=== PATIENT | male | born 1965 | race Caucasian/White ===

== ENCOUNTER → 2019-05-30 10:15 | Outpatient (BNVA) | payer MEDICARE, MEDICAID, SELFPAY | PROVIDERS: Family Provider Nurse Practitioner Family; PCP Nurse Practitioner Family; Visit Provider Nurse Practitioner Psychiatric/Mental Health | DX: F33.3 Major depressive disorder, recurrent, severe with psychotic symptoms (principal); F17.210 Nicotine dependence, cigarettes, uncomplicated; F10.20 Alcohol dependence, uncomplicated | CPT/HCPCS: 99214 ==

== ENCOUNTER 2019-06-06 14:24 | Outpatient (CLI) | payer MEDICARE, MEDICAID, SELFPAY ==
--- NOTE | 2019-06-06 14:54 | XR_ITS ---
WS: [id number] CERVICAL SPINE FLEXION EXTENSION TECHNIQUE: 3 views of the cervical spine: lateral neutral, flexion and extension views. CLINICAL INFORMATION: cervical pain COMPARISON: None. FINDINGS: Straightening of the normal cervical lordosis. Mild spondylitic changes. Mild disc space narrowing C6 -7. Normal prevertebral soft tissues. Normal C1-2 articulation. No instability on flexion-extension. Posterior elements are normal. No other significant findings. XR/XR cervical spine fl/ex [id number] IMPRESSION: No instability on flexion-extension
--- NOTE | 2019-06-06 15:00 | MR_ITS ---
WS: [id number] MRI CERVICAL SPINE NONCONTRAST TECHNIQUE: Sagittal T1, T2 and STIR imaging. Axial T2, gradient, and fiesta imaging. CLINICAL INFORMATION: cervical pain COMPARISON: MRI cervical [address] cervical March 17, 2019 FINDINGS: Some images degraded by motion. Normal cervical alignment. No high-grade central canal stenosis. Cord signal is normal. Mild disc bu lging C3-C6. C2-C3: Normal. C3-C4: Mild disc bulging with mild central canal stenosis. Slight effacement of ventral thecal sac. M oderate bilateral bony foraminal narrowing. C4-C5: Mild disc osteophyte complex with mild central canal stenosis. Slight effacement of ventral th ecal sac. Moderate to severe bilateral bony foraminal narrowing worse in the left with mild facet art hropathy. C5-C6: Mild disc bulging with osteophytic ridging. Moderate bilateral bony foraminal narrowing. Moder ate facet arthropathy. Spinal canal is patent. C6-C7: Small left pericentral protrusion with mild central canal stenosis. Moderate to severe bilater al bony foraminal C7-T1: Osteophytic ridging. Moderate bilateral bony foraminal narrowing. Spinal canal is patent Cervical spine appears stable since MRI December 12, 2018. No significant interval changes. MR/MR cervical spin wo con* [id number] IMPRESSION: 1. Mild central canal stenosis with shallow disc osteophyte complexes at C3-C4 C4-C5 and C6-C7. 2. Shallow Left pericentral disc osteophyte protrusion C6-7 with mild central canal stenosis. 3. Multilevel moderate to severe bony foraminal narrowing worse at left C3-C4, bilateral C4-C5 worse in the left, bilateral C5-C6 worse in the left, and bila teral C6-7. 4. Cord signal is normal.
== END 2019-06-06 14:25 | disposition home or self-care (01) ==
LOC: RADWPI 14:29
PROVIDERS: Family Provider Nurse Practitioner Family; PCP Nurse Practitioner Family; Visit Provider Specialist
DX: M48.02 Spinal stenosis, cervical region (principal); M25.78 Osteophyte, vertebrae; M50.223 Other cervical disc displacement at C6-C7 level
CPT/HCPCS: 72040; 72141

== ENCOUNTER → 2019-06-29 08:45 | Outpatient (BNVA) | payer MEDICARE, MEDICAID, SELFPAY | PROVIDERS: Family Provider Nurse Practitioner Family; PCP Nurse Practitioner Family; Visit Provider Nurse Practitioner Psychiatric/Mental Health | DX: F33.3 Major depressive disorder, recurrent, severe with psychotic symptoms (principal); F17.210 Nicotine dependence, cigarettes, uncomplicated; F10.29 Alcohol dependence with unspecified alcohol-induced disorder | CPT/HCPCS: 99214 ==

== ENCOUNTER → 2019-07-11 08:20 | Outpatient (BNVA) | payer MEDICARE, MEDICAID, SELFPAY | PROVIDERS: Family Provider Nurse Practitioner Family; PCP Nurse Practitioner Family; Referring Provider Nurse Practitioner Family; Visit Provider Anesthesiology Pain Medicine | DX: G89.29 Other chronic pain (principal); M54.12 Radiculopathy, cervical region; M47.816 Spondylosis without myelopathy or radiculopathy, lumbar region; M54.16 Radiculopathy, lumbar region; F33.3 Major depressive disorder, recurrent, severe with psychotic symptoms; F17.210 Nicotine dependence, cigarettes, uncomplicated; Z79.891 Long term (current) use of opiate analgesic | CPT/HCPCS: 99203 ==

== ENCOUNTER → 2019-08-07 07:24 | Outpatient (BNVA) | payer MEDICARE, MEDICAID, SELFPAY | PROVIDERS: Family Provider Nurse Practitioner Family; PCP Nurse Practitioner Family; Visit Provider Nurse Practitioner Psychiatric/Mental Health | DX: F33.3 Major depressive disorder, recurrent, severe with psychotic symptoms (principal); F17.210 Nicotine dependence, cigarettes, uncomplicated; F10.29 Alcohol dependence with unspecified alcohol-induced disorder | CPT/HCPCS: 99213 ==

== ENCOUNTER → 2019-08-10 12:00 | Outpatient (BNVA) | payer MEDICARE, MEDICAID, SELFPAY | PROVIDERS: Family Provider Nurse Practitioner Family; PCP Nurse Practitioner Family; Visit Provider Nurse Practitioner Family | DX: E53.8 Deficiency of other specified B group vitamins (principal); Z12.5 Encounter for screening for malignant neoplasm of prostate; D64.9 Anemia, unspecified; E78.2 Mixed hyperlipidemia; I10 Essential (primary) hypertension; E55.9 Vitamin D deficiency, unspecified; R73.09 Other abnormal glucose; Z01.818 Encounter for other preprocedural examination | CPT/HCPCS: 80053; 80061; 81001; 82306; 82607; 83036; 84443; 85025; G0103 ==

== ENCOUNTER 2019-08-14 10:42 | Observation (INO) | payer MEDICARE, MEDICAID, SELFPAY ==
[2019-08-11 11:20] VITALS: BMI 29.5
[2019-08-14] VITALS (17 sets, daily range): BP systolic 110–156; BP diastolic 68–98; PULSE 74–99; RESP 16–87; TEMP 36.3–36.7; O2SAT 92–99
--- NOTE | 2019-08-14 06:27 | ANES.PREANE2 ---
Pre-Anesthetic Assessment Pre-Anesthetic Assessment: Height/Weight: Height 1.73 m Weight 87.997 kg Temp Pulse Resp BP Pulse Ox 97.8 F 78 18 143/98 97 08/14/19 06:12 08/14/19 06:12 08/14/19 06:12 08/14/19 06:12 08/14/19 06:12 Preop Diagnosis: Intervertebral disc disorder with myelopathy, mid cervical region Proposed Procedure: Operation Date: 08/14/19 07:00 Proposed Procedures p Anterior Cervical Discecotmy&Fusion 2Lev C3-4 C4-5 83053 M50.020(Not Applicable) - Flex Hernandez MD Familial anesthetic complications: None Was Beta Nenita taken within 24 hours: Yes Last intake: NPO > 8 hrs Social: Social History: Tobacco and No alcohol Packs per day: 0.5 ppd Exam: Pre-Anes Outpt Exam: alert, oriented x 3, clear to auscultation bilaterally and regular rate & rhythm Airway: Cervical ROM: WNL and Other (Limited extension due to p ain) MP: 3 Additional comments: edentulous Pulmonary: Pulmonary: Asthma CV/HEM: CV/HEM: CAD (multiple stents; last one > 1 year), HTN and RI : : None reported Hepatic: Hepatic: None reported GI: GI: None reported Metabolic: Metabolic: DM ( formerly ) Musc/skel: Comments: neck pain Neuropsych: Neuropsych: Neuropathy Comments: R arm, l leg Anesthetic Plan: ASA status: 3 Anesthesia: General Risk of > 500 ml blood loss (7ml/kg in children): No PFSH Anesthesia PFSH: Medical History (Updated 08/10/19 @ 10:35 by CARMEN Valdes) Alcohol dependence Cervical disc disorder with myelopathy of mid-cervical region Chronic migraine Depression Elevated hemoglobin A1c History of RI (myocardial infarction) Hypertension, benign Insomnia 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 Major depressive disorder, recurrent, severe with psychotic symptoms Mixed hyperlipidemia Neuropathy, idiopathic Nicotine dependence, cigarettes, uncomplicated Pain management contract signed Polyneuropathy, peripheral sensorimotor axonal Spondylolisthesis of cervical region Vitamin B12 deficiency Vitamin D deficiency Surgical History History of cholecystectomy History of elbow surgery History of heart artery stent Hx of appendectomy Social History Smoking and tobacco status: current every day smoker cigarettes [ Other cigarette details: 1 pck and half ] Alcohol intake: former Lives independently: Yes Marital status: Life Partner Current occupational status: disabled History of recent travel: No Data Anesthesia Cardiac Studies: No Data to Display
[2019-08-14] MEDS: metoprolol tartrate 25 mg Tablet PO (06:32)
[2019-08-14] MEDS: sodium chloride 0.9% 1,000 ML 30 ML IV (06:37)
--- NOTE | 2019-08-14 06:56 | P.HPUD_ITS ---
Surgery/Procedure H&P Update DATE OF PROCEDURE: August 14, 2019 DATE H&P PERFORMED: 08/10/19 H&P UPDATE INFORMATION: I have reviewed H&P completed within last 30 days and H&P is in [facility] EMR on date indicated PREOP DIAGNOSIS: Intervertebral disc disorder with myelopathy, mid cervical region PRIMARY INDICATION FOR PROCEDURE: Pain PLANNED PROCEDURE: Operation Date: 08/14/19 07:00 Proposed Procedures Anterior Cervical Discectomy/Fusion/fixation, C3-4 and C4-5 18172 M50.020(Not Applicable) - Flex Hernandez MD
--- NOTE | 2019-08-14 07:08 | PM.OP2 ---
 Brief Operative Note: Date of procedure: 08/14/19 Pre-op diagnosis: Intervertebral disc disorder with myelopathy Post-op diagnosis: same (with instability of joint) Procedure Done: C3-C5 ACDFF Surgeon: Flex Hernandez Estimated blood loss (mL): 25 Complications: None Post-op Plan: PACU, then surgical joaquin Condition: stable Disposition: PACU Coding Level of Care Code Acute Extruding Press Operator for Kaylee Aguayo
--- NOTE | 2019-08-14 07:18 | XR_ITS ---
WS: [id number] INTRAOPERATIVE LATERAL CERVICAL SPINE HISTORY: OR PIC COMPARISON: 06/06/2019 Lateral radiograph obtained in the OR with a metallic marker indicating the anterior C4-5 disc level. Patient is intubated. XR/XR cervical spine 1ort [id number] IMPRESSION: Intraoperative planning marker at anterior C4-5 disc level.
--- NOTE | 2019-08-14 07:51 | XR_ITS ---
WS: [id number] INTRAOPERATIVE LATERAL CERVICAL SPINE HISTORY: SURGERY COMPARISON: 06/06/2019 Lateral radiograph obtained in the OR with a metallic marker indicating the C4-5 anterior disc space. Soft tissue spacers are now present also. Patient is intubated. XR/XR cervical spine 1ort [id number] IMPRESSION: Intraoperative planning marker at anterior C4-5 disc level.
[2019-08-14] MEDS: thrombin 5,000 unit SDV 5000 UNIT XX (08:01)
--- NOTE | 2019-08-14 08:28 | SUR.OPER ---
Family Notified Of Patient's Status Via Phone.
--- NOTE | 2019-08-14 09:56 | SUR.OPER ---
Family Notified Of Patient's Status Via Phone.
--- NOTE | 2019-08-14 10:15 | XR_ITS ---
WS: [id number] CERVICAL SPINE 2 VIEWS HISTORY: AP/LAT Post op Fusion COMPARISON: Intraoperative imaging. Interval placement of an anterior cervical plate from C3 through C5. Interbody spacers at C3-4 and C4 -5. Postoperative soft tissue changes. Patient has been extubated. XR/XR cervical spine 3V* [id number] IMPRESSION: Status post anterior cervical fusion with interbody spacers from C3 through C5. Intact with no acute postoperative complication.
[2019-08-14] MEDS: fentaNYL 50 mcg/mL INJ 2mL IVP ×2 (10:35→10:40)
--- NOTE | 2019-08-14 11:20 | SUR.PHASEI ---
1055 PT HAS MOVEMENT TO ALL EXTREMITIES. C/O PAIN/WEAKNESS IN R. SHOULDER, STATES HAS PAIN IN SHOULDER ALL THE TIME. DIDN'T WANT TO MOVE R. ARM MUCH DUE TO PAIN
[2019-08-14] MEDS: ketorolac 30 mg/mL INJ IVP (12:29)
--- NOTE | 2019-08-14 12:35 | PC.NURSE ---
Toradol 30 mg IV given for complaints of neck pain rated 9/10.
[2019-08-14] MEDS: HYDROcodone-acetaminophen 5-325 mg Tablet 1 TAB PO (15:17)
--- NOTE | 2019-08-14 16:15 | PM.OP ---
Operative Report Date of procedure: August 14, 2019 Pre-op Diagnosis: Intervertebral disc disorder with myelopathy, mid cervical region Post-op diagnosis: same (with instability of joint) Procedure Done: 1. C3-C4, C4-C5 anterior cervical discectomy with osteophytectomy. 2. C3-C4, C4-C5 anterior cervical plate and screw fixation. 3. C3-C4, C4-C5 placement of intervertebral prosthetic device. 4. C3-C4, C4-C5 anterior cervical fusion utilizing morselized autograft obtained from the osteophytectomy portions of the procedure. Implants: Synthes Vectra plate-screw fixation system ACIS ProTi Spacers Specimens removed/disposition: C3-C4, C4-C5 disc Pathology: Disc fragments Surgeon: Flex Hernandez Anesthesia: General Estimated blood loss (mL): 25 IV fluids (mL): 1,500 Urine output (mL): 400 Complications: None Condition: stable Disposition: PACU Brief History: The patient is a 54-year-old male with symptomatic, radiographically confirmed cervical disc/joint disease and associated neural impingement. He reported primarily right upper extremity symptoms. Imaging studies demonstrated dominant abnormalities at C3-C4 and C4-C5. Conservative management did not provide adequate lasting symptom relief. After review of the diagnostic and treatment options with the risks/potential benefits/rationale for each, the patient requested to proceed with surgical intervention. Procedure: After routine preoperative evaluation and informed consent were obtained, the patient was taken to the Operating Room and placed under general endotracheal anesthesia. He was positioned supine and fit in the [facility] tongs for the application of in-line cervical traction. The anterolateral neck on the left was prepared with hair clippers. A proposed transverse skin incision was marked with a sterile skin marker, utilizing intraoperative radiography and regional anatomy for localization. The area was scrubbed with Betadine, prepped with DuraPrep, and draped with sterile towels and drapes. Ioban surgical barrier was applied. The proposed incision site was infiltrated with 1% Xylocaine with Epinephrine. A skin incision was made and carried down into the subcutaneous tissues. The platysma was identified and divided in the direction of its fibers. A plane was dissected just medial to the carotid sheath and lateral to the midline esophagus and trachea. Prevertebral soft tissues were bluntly dissected free of the anterior margin of the cervical spine. Longus coli muscles were freed from their medial attachments. Deep self-retaining retractors were placed. Intraoperative radiography verified the desired surgical levels. The C3-C4 and C4-C5 interspaces were sequentially incised with a #11 blade. Discectomies were accomplished utilizing various curettes and pituitary rongeurs. Anterior marginal osteophytes were resected with the Lempert and Kerrison rongeurs. Cartilaginous end plates were stripped free with curettes. Posterior marginal osteophytes were resected with thin foot plate Kerrison rongeurs. The medial aspects of the neural foramina were enlarged in a similar manner. Posterior longitudinal ligament was divided and resected as necessary to further the decompression. Overall, encroachment and osteophyte prominence were greater at C4-C5 than C3-C4. Prominent segmental instability was present at C3-C4. Once the decompressions were felt to be adequate at both levels, the disc spaces were sized. An 8 mm ACIS ProTi Lordotic/Medium Spacer was chosen for C3-C4. An 8 mm ACIS ProTi Lordotic/Medium Spacer was chosen for C4-C5. The Spacers were packed with morselized autograft obtained from the osteophytectomy portions of the procedure. The Spacers were sequentially placed within the C3-C4 and C4-C5 interspaces while in-line cervical traction was applied via the Song-Wells tongs. Once the Spacers were felt to be in good position, a Synthes Vectra plate of the desired size was chosen. The plate was secured to the C3, C4 and C5 vertebral bodies with bilateral 4 mm x 14 mm self-drilling screws. Final screw tightening was performed, and the locking mechanisms within the plate were noted to engage the screws at each site. The construct was inspected and felt to be in good position and secure. The wound was copiously irrigated with sterile saline and antibiotic irrigation. Hemostasis was ensured with the bipolar electrocautery and Surgi-Shahid hemostatic matrix. Wound closure was performed in multiple layers with 2-0 Vicryl Plus simple interrupted closure of the platysma and deep dermis as separate layers. Final skin closure was performed with 4-0 Vicryl Plus in a running subcuticular pattern. Steri-Strips were applied, and a sterile dressing was placed. The patient was released from the Song-Wells tongs and fit in a Emeigh collar. He was transferred onto the Recovery Room cart in the supine position. He was extubated without incident. The patient tolerated the procedure well. All sponge, needle, and instrument counts were correct at the completion of the procedure.
--- NOTE | 2019-08-14 17:00 | P.DS_ITS ---
Discharge Providers Date of Admission: 08/14/19 10:42 Date of Discharge: August 14, 2019 Attending Provider at Admission: Flex Whitehead MD Attending Provider at Discharge: Flex Whitehead MD Primary Care Provider: CARMEN Alaniz Diagnoses at Discharge Discharge Diagnosis (1) Cervical disc disorder with myelopathy of mid-cervical region: Status: Acute (2) Spondylolisthesis of cervical region: Status: Acute (3) Instability of joint: Status: Acute Reason for Visit Reason for Visit: Reason For Visit: Cervical Disc Disorder with myelopathy of mid cerv Brief History: The patient is a 54-year-old male with symptomatic, radiographically confirmed cervical disc/joint disease and associated neural impingement. He reported primarily right upper extremity symptoms. Imaging studies demonstrated dominant abnormalities at C3-C4 and C4-C5. Conservative management did not provide adequate lasting symptom relief. After review of the diagnostic and treatment options with the risks/potential benefits/rationale for each, the patient requested to proceed with surgical intervention. Hospital Course Hospital Course: The patient underwent C3-C4, C4-C5 ACDFF on 08/14/2019. He tolerated the procedure well. He noted improvement in preoperative symptoms following surgery. He completed preoperative and postoperative intravenous antibiotic doses, and the physical therapy postoperative spine protocol. He was ambulatory, voiding, and tolerating regular diet prior to discharge home in the evening of the date of surgery. Physical Exam Const: COMMON NORMALS: no apparent distress GENERAL APPEARANCE: cooperative and comfortable Neck/C-Spine: COMMON NORMALS: supple GENERAL: Yes trachea midline and No anterior neck swelling CERVICAL SPINE: Yes collar present Resp: COMMON NORMALS: normal respiratory effort EFFORT & INSPECTION: Yes able to speak in complete sentences and No tachypneic Extremity: COMMON NORMALS: no clubbing, cyanosis or edema Neuro: COMMON NORMALS: moves all extremities MOTOR EXAM: strength 5/5 throughout (bilateral upper extremities) Psych: COMMON NORMALS: mental status grossly normal ATTITUDE: Yes calm and Yes engaged ACTIVITY/MOTOR BEHAVIOR: Yes appropriate eye contact MOOD & AFFECT: Yes euthymic mood Skin: WOUNDS: Yes surgical site (Left anterolateral neck surgical site without erythema or active drainage. Dressing is clean/dry/intact.) Urinary Catheter Management^: F: Cath Placed During This Visit: yes Urinary Catheter Date of Insertion: 08/14/19 Urinary Catheter Time of Insertion: 07:15 Discharge Data Data Completed and Pending: Completed Studies During Hospitalization Category Date Time Status XR cervical spine 1 view portable [ XR cervical spine Exams 08/14/19 07:51 Completed 1Vport [id number]] Rou eliseo XR cervical spine 1Vport 34548 Rout ine Exams 08/14/19 07:18 Completed XR cervical spine 3V* [id number] Routine Exams 08/14/19 10:15 Completed Pathology: Surgic al [PTH] Routine Pth 08/14/19 10:23 Completed Imaging^: Other Xray: Radiologist's impression: IMPRESSION: Status post anterior cervical fusion with interbody spacers from C3 through C5. Intact with no acute postoperative complication. Procedures Performed: C3-C4, C4-C5 anterior cervical discectomy/fusion/fixation. Intravenous antibiotics. Physical therapy. Vitals: Last Vital Signs Temp 98.1 F 08/14/19 11:39 Pulse 74 08/14/19 18:01 Resp 22 H 08/14/19 18:01 BP 130/68 08/14/19 18:01 Pulse Ox 96 08/14/19 18:01 Discharge Plan Discharge Patient Disposition: Home, Self-Care Prescriptions: [place] 7.5-325 mg tablet 1 tab PO TID PRN (Reason: pain) Qty: 20 RF: 0 Discontinued hydrocodone-acetaminophen 5-325 mg tablet 1 tab PO TID MDD 3 PRN (Reason: chronic pain) 7 Days Qty: 21 RF: 0 No Action rosuvastatin [Crestor] 20 mg tablet 20 mg PO DAILY RF: 0 baclofen 10 mg tablet 10 mg PO TID RF: 0 venlafaxine [Effexor XR] 150 mg capsule,extended release 24hr 150 mg PO QAM Qty: 30 RF: 3 metoprolol tartrate 25 mg tablet 25 mg PO BID 90 Days Qty: 180 RF: 1 hydrochlorothiazide 25 mg tablet 25 mg PO DAILY Qty: 30 RF: 2 omeprazole 40 mg capsule,delayed release(DR/EC) 40 mg PO DAILY Qty: 30 RF: 5 triamcinolone acetonide 0.5 % cream 1 applic TOPICAL DAILY 30 Days Qty: 15 RF: 2 lisinopril 10 mg tablet 20 mg PO DAILY RF: 0 Discharge Orders: Discharge Order (Routine); Ordered 08/14/19 Ordered By: Flex Whitehead Referrals: Flex Whitehead MD [Physician] - (DR WHITEHEAD OFFICE WILL CALL WITH APPOINTMENT ) Patient Instructions: Hydrocodone/Acetaminophen (By mouth), Anterior Cervical Discectomy (DC) Discharge Date/Time: 08/14/19 17:45 Discharge Attestations Time Spent in Discharge Care*: other (Postop global.) Quality Metrics Clinical Quality Measures During this hospital stay, did patient experience: None Coding Level of Care Code Acute Weigher Operator for Normang Fwd Exam Detailed Diagnoses Cervical disc disorder with myelopathy of mid-cervical region M50.020 Spondylolisthesis of cervical region M43.12 Instability of joint M25.30 Comment Postop global.
== END 2019-08-14 17:45 | disposition home or self-care (01) ==
LOC: MEDSURG 11:07
PROVIDERS: Admitting Provider Specialist; Family Provider Nurse Practitioner Family; PCP Nurse Practitioner Family; Visit Provider Specialist
PROC: 0RB30ZZ Excision of Cervical Vertebral Disc, Open Approach (ICD-10-PCS; CPT 22551; principal; 2019-08-14 07:00)
DX: M50.021 Cervical disc disorder at C4-C5 level with myelopathy (principal); M53.2X2 Spinal instabilities, cervical region; M43.12 Spondylolisthesis, cervical region; F17.210 Nicotine dependence, cigarettes, uncomplicated; I25.10 Atherosclerotic heart disease of native coronary artery without angina pectoris; I10 Essential (primary) hypertension; I25.2 Old myocardial infarction; E11.9 Type 2 diabetes mellitus without complications; G47.10 Hypersomnia, unspecified; Z79.891 Long term (current) use of opiate analgesic
CPT/HCPCS: 22551; 22552; 22853 ×2; 12345; 51702; 72020; 72040; 88304; 96360; 96361; 96375; 97110; 97161; C1713; G0378; J0690; J1100; J1885; J2001; J2250; J2370; J2405; J2704; J2710; J3010; J3490; J7030; L0172; L0174

== ENCOUNTER → 2019-09-01 09:02 | Outpatient (BNVA) | payer MEDICARE, MEDICAID, SELFPAY | PROVIDERS: Family Provider Nurse Practitioner Family; PCP Nurse Practitioner Family; Visit Provider Anesthesiology Pain Medicine | DX: G89.29 Other chronic pain (principal); M54.12 Radiculopathy, cervical region; M47.816 Spondylosis without myelopathy or radiculopathy, lumbar region; M54.16 Radiculopathy, lumbar region; M54.9 Dorsalgia, unspecified; F33.3 Major depressive disorder, recurrent, severe with psychotic symptoms; F10.29 Alcohol dependence with unspecified alcohol-induced disorder; F17.210 Nicotine dependence, cigarettes, uncomplicated; Z79.891 Long term (current) use of opiate analgesic | CPT/HCPCS: 99213 ==

== ENCOUNTER 2019-10-02 13:15 | Outpatient (CLI) | payer MEDICARE, MEDICAID, SELFPAY ==
--- NOTE | 2019-10-02 13:34 | XR_ITS ---
WS: [id number] CERVICAL SPINE TECHNIQUE: 3 views of the cervical spine CLINICAL INFORMATION: s/p cervical spinal fusion COMPARISON: August 14, 2019 FINDINGS: Straightening of the normal cervical lordosis. Anterior interbody cervical fusion C3-C5. Interbody fu sugar grafts. Hardware appears unchanged since August 14, 2019 in good position. XR/XR cervical spine 3V* [id number] IMPRESSION: Stable anterior cervical fusion with interbody fusion grafts C3-C5 in good posi tion.
== END 2019-10-02 13:16 | disposition home or self-care (01) ==
LOC: WPI 13:18
PROVIDERS: Family Provider Nurse Practitioner Family; PCP Nurse Practitioner Family; Visit Provider Licensed Practical Nurse
DX: Z98.1 Arthrodesis status (principal); M43.22 Fusion of spine, cervical region
CPT/HCPCS: 72040

== ENCOUNTER 2019-10-13 15:05 | Outpatient (CLI) | payer MEDICARE, MEDICAID, SELFPAY ==
--- NOTE | 2019-10-13 15:30 | CT_ITS ---
WS: [id number] CT CERVICAL SPINE TECHNIQUE: Noncontrast CT of the cervical spine with coronal and sagittal reformatted images. CLINICAL INFORMATION: S/P fusion/fixation COMPARISON: MRI June 06, 2019 DLP: 2004.[address] scans at [facility] use at least one of these dose optimization techniques: automat ed exposure control; mA and/or kV adjustment per patient size (includes targeted exams where dose is matched to clinical indication); or iterative reconstruction. FINDINGS: Straightening of the normal cervical lordosis. Mild cervical curve. No high-grade central canal steno sis. Postoperative changes anterior cervical fusion with interbody fusion C3-C5. No evidence of hardw are loosening. Hardware appears in good position. Immature interbody fusion grafts C2-C3: Normal. C3-C4: Osteophytic ridging. Slight effacement of ventral thecal sac. Moderate bilateral bony foramina l narrowing. C4-C5: Postoperative changes. Osteophytic ridging. Slight effacement of ventral thecal sac. Moderate to severe bilateral bony foraminal narrowing worse in the left with mild facet arthropathy. C5-C6: Postoperative changes anterior fusion C5. Endplate osteophytic ridging. Moderate bilateral bon y foraminal narrowing. Moderate facet arthropathy. Spinal canal is patent. C6-C7: Disc osteophyte complex with mild to moderate central canal stenosis.. Moderate to severe bila teral bony foraminal C7-T1: Osteophytic ridging. Moderate bilateral bony foraminal narrowing. Spinal canal is patent CT/CT cervical spin wo con* [id number] IMPRESSION: 1. Postoperative changes are new since the prior MRI with ACDF C3-C5. Hardware appears well seated. Interbody fusion grafts in good position. 2. No high-grade central canal stenosis. 3. Mild to moderate central canal stenosis at C6-7 is unchanged. 4. Multilevel bony foraminal narrowing worse at left C4-5, bilateral C5-6, and bilateral C6-7 worse in the left, unchanged.
== END 2019-10-13 15:06 | disposition home or self-care (01) ==
LOC: RADWPI 15:10
PROVIDERS: Family Provider Nurse Practitioner Family; PCP Nurse Practitioner Family; Visit Provider Licensed Practical Nurse
DX: Z98.890 Other specified postprocedural states (principal)
CPT/HCPCS: 72125

== ENCOUNTER 2019-11-03 10:11 | Outpatient (CLI) | payer MEDICARE, MEDICAID, SELFPAY ==
--- NOTE | 2019-11-03 10:49 | MR_ITS ---
WS: [id number] MRI LUMBAR SPINE NONCONTRAST TECHNIQUE: Sagittal T1, T2 and STIR imaging. Axial T1 and T2 imaging. CLINICAL INFORMATION: M48.061 Spinal stenosis, lumbar region without neurogenic... COMPARISON: FINDINGS: Mild lumbar curve. No acute compression. Mild disc bulging worse L4-5 with severe central canal steno sis. L1-L2: Normal. L2-L3: No significant disc bulging. Mild facet arthropathy. Spinal canal and foramen are patent. L3-L4: Mild annular bulging. Mild facet arthropathy. Spinal canal and foramen are patent. L4-L5: Mild disc bulging in combination with facet arthropathy and ligamentum flavum hypertrophy resu lts in severe central canal stenosis. Impingement on the subarticular recess bilaterally. Moderate ri ght and mild left foraminal narrowing. L5-S1: Mild disc bulge with endplate ridging. Slight effacement of the ventral thecal sac. Spinal can al and foramen are patent. Mild facet arthropathy. Visualized pelvic bony structures: Normal. Paravertebral soft tissues: Normal. MR/MR lumbar spine wo con* [id number] IMPRESSION: 1. Mild lumbar curve. No acute compression. 2. Severe central canal stenosis L4-5 with impingement on the subarticular rec ess bilaterally. This appears progressed since 2019. 3. Moderate facet arthropathy L3-L5. 4. Moderate right and mild left L4-5 foraminal narrowing.
--- NOTE | 2019-11-03 11:00 | XR_ITS ---
WS: [id number] Lumbar spine with flexion, extension, and neutral lateral, 11/03/2019 Clinical Data: lumbar pain Comparison: None. Findings: No compression fractures are seen. A 0.3 subluxation of L4 on L5. No disc space narrowing is seen. No limitation of motion or change in subluxation is seen during flexion or extension. There is minimal calcification along the abdominal aorta but no aneurysm is seen. XR/XR lumbar spine f/e only 40525 Impression: Negative lateral lumbar spine.
== END 2019-11-03 10:12 | disposition home or self-care (01) ==
LOC: RADWPI 10:15
PROVIDERS: Family Provider Nurse Practitioner Family; PCP Nurse Practitioner Family; Visit Provider Specialist
DX: M48.061 Spinal stenosis, lumbar region without neurogenic claudication (principal); M47.816 Spondylosis without myelopathy or radiculopathy, lumbar region
CPT/HCPCS: 72120; 72148

== ENCOUNTER → 2019-12-14 16:19 | Outpatient (BNVA) | payer MEDICARE, MEDICAID, SELFPAY | PROVIDERS: Family Provider Nurse Practitioner Family; PCP Nurse Practitioner Family; Visit Provider Nurse Practitioner Family | DX: M79.642 Pain in left hand (principal); M25.512 Pain in left shoulder; M25.562 Pain in left knee | CPT/HCPCS: 73030; 73130; 73562 ==

== ENCOUNTER → 2020-01-09 07:31 | Outpatient (BNVA) | payer MEDICARE, MEDICAID, SELFPAY | PROVIDERS: Family Provider Nurse Practitioner Family; PCP Nurse Practitioner Family; Visit Provider Nurse Practitioner Psychiatric/Mental Health | DX: F33.3 Major depressive disorder, recurrent, severe with psychotic symptoms (principal); F17.210 Nicotine dependence, cigarettes, uncomplicated; F10.21 Alcohol dependence, in remission | CPT/HCPCS: 99213 ==

== ENCOUNTER → 2020-02-21 10:59 | Outpatient (BNVA) | payer MEDICARE, MEDICAID, SELFPAY | PROVIDERS: PCP Nurse Practitioner Family; Visit Provider Orthopaedic Surgery | DX: Z11.59 Encounter for screening for other viral diseases (principal); M43.16 Spondylolisthesis, lumbar region | CPT/HCPCS: 87635 ==

== ENCOUNTER 2020-02-29 09:49 | Inpatient (IN) | payer MEDICARE, MEDICAID, SELFPAY ==
--- NOTE | 2020-02-23 10:50 | ECG_ITS ---
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
[2020-02-28 12:43] VITALS: BMI 26.6
[2020-02-29] VITALS (19 sets, daily range): BP systolic 101–131; BP diastolic 58–88; PULSE 75–116; RESP 16–25; TEMP 36.4–37; O2SAT 91–99
--- NOTE | 2020-02-29 | SCC_ITS ---
Procedure Done: 1.Posterior instrumentation L4/L5 2. Interbody cage PLIF L4/5 3. arthrodesis posterior interbody 4. laminectomy L4 5. Use of Autograft from same incision 6. Bone Marrow aspirate 7. use of allograft 79.5 seconds of fluoroscopic guidance, for a cumulative dose of 96.21 mGy, was provided to Dr. Ram by the radiology department. C-arm images of the lumbar spine were saved for the patient's permanent record. SHARONDA
--- NOTE | 2020-02-29 10:34 | P.ANESUD_ITS ---
Pre-Anesthetic Update Pre-Anesthetic Assessment: Date of Surgery/Procedure: 02/29/20 Preop Damaris gnosis: L4/5 spondylolisthesis Proposed Procedure: Operation Date: 02/29/20 11:10 Proposed Procedures p L4/5 PLIF 63420 64733 14344 82031 94362 49564 M48.06 M43.16(Not Applicable) - Akin Ram, DO Any changes to Pre-Anesthetic Assessment?: No Last Intake: NPO > 8 hrs Exam: Pre-Anes Outpt Exam: alert, oriented x 3, clear to auscultation bilaterally and regular rate & rhythm Cardiac Studies: No Data to Display
[2020-02-29] MEDS: sodium chloride 0.9% 1,000 ML 30 ML IV (11:18)
[2020-02-29] MEDS: gabapentin 300 mg Capsule PO (11:35)
--- NOTE | 2020-02-29 12:13 | W.PM.OPSUD ---
Surgery/Procedure H&P Update DATE OF PROCEDURE: February 29, 2020 DATE H&P PERFORMED: 08/10/19 H&P UPDATE INFORMATION: I have reviewed H&P completed within last 30 days, I have examined patient prior to procedure and No changes to prior documentation PREOP DIAGNOSIS: L4/5 spondylolisthesis PLANNED PROCEDURE: Operation Date: 02/29/20 11:10 Proposed Procedures p L4/5 PLIF [id number] M48.06 M43.16(Not Applicable) - Akin Ram DO
[2020-02-29] MEDS: heparin, porcine 1,000 unit/mL INJ 10 mL 10000 UNIT HE (14:17)
--- NOTE | 2020-02-29 17:05 | PM.PACU ---
PACU note PACU note: VSS good respiratory effort Post-Anesthesia Exam: awake Disposition: admitted
[2020-02-29] MEDS: fentaNYL 50 mcg/mL INJ 2mL IVP (17:09)
--- NOTE | 2020-02-29 17:11 | P.OP_ITS ---
Operative Report Date of procedure: February 29, 2020 Pre-op Diagnosis: L4/5 spondylolisthesis Post-op diagnosis: same Procedure Done: 1.Posterior instrumentation L4/L5 2. Interbody cage PLIF L4/5 3. arthrodesis posterior interbody 4. laminectomy L4 5. Use of Autograft from same incision 6. Bone Marrow aspirate 7. use of allograft Surgeon: Akin Ram Anesthesia: General Estimated blood loss (mL): 150 Condition: stable Disposition: PACU Procedure: Patient was brought to the operative suite placed in the prone position all areas impingement were well-padded. Patient was prepped and draped normal sterile fashion. Attention was first brought to aspirating the bone marrow aspirate. This was done using the [employer] Therapeut[employer] kit. Stab incision was made then the Intellioshidi needle was inserted bone marrow was aspirated using a counterclockwise technique. This was then placed on the osteoamp bone graft both the fibers and the sponge. Skin incision was made over the L4-5 level this was confirmed under C arm once incision was made thoracolumbar fascia was split and subperiosteal dissection was made out to the facets bilaterally. Retractors were placed pedicle screws were placed on the right side at L4 and L5. Was brought to performing the laminectomy [place] a large rongeur was used to take down the spinous process of L4. The high-speed bur was then used to drill out the lamina and part of the facet bilaterally. Once laminectomy was completed using high-speed bur Kerrisons and curettes. 10 was brought to placing the cage the L5 nerve and dura were retracted medially and and cutters were used to open up the disc base this was done from between L4 and L5 up to a size 12 shaver was brought pituitaries and curettes were used to scrape the endplates and remove this space once this basically opened up then osteoamp that was soaked with bone marrow aspirate was placed into the disc space A size 12 [place] cage was packed with osteoamp fibers and then impacted into the L4-5 disc base once this was locked into position AP lateral fluoroscopy ensured there is in good position then attention was brought to placing the left pedicle screws and screw placed at L4 and L5 once these were all placed then the rods were placed in L4 and L5 and the compression was had to help with lordosis as well as compress the cage. Once this was completed attention was then brought to placing the sponges there were osteoamp in the gutters around the facet after the bird this was done bilaterally microscope was then brought in to ensure that there is nothing compressing on the nerves the nerves were all decompressed and then the wounds irrigated and closed with 0 Vicryl for the thoracolumbar fascia skin was closed with 2-0 Vicryl skin was closed with Monocryl suture and glue sterile dressings were applied and patient was transferred to the PACU in stable condition. See the above for specific procedures that were done in the case as listed under procedure done.
[2020-02-29] MEDS: metoprolol tartrate 25 mg Tablet PO (18:05)
[2020-02-29] MEDS: docusate sodium 100 mg Capsule PO (18:05)
[2020-02-29] MEDS: oxyCODONE-APAP 5-325 mg Tablet PO ×2 (18:05→22:20)
--- NOTE | 2020-02-29 18:06 | SUR.PHASEI ---
1735 PT AWAKE ALERT TALKING AND LAUGHING WITH , PT REPOSITIONED X 4 TIMES NOW FIRST TO RT SIDE CAREFUL TO INSTRUCT PT NOT TO TWIST HIPS AND SHOULDER PILLOWS AND BLANKETS TO COMFORT , THEN ABD BINDER PLACED AND PT RELAXED ON BACK, LOWER BACK DRESSING X 2 D/I PT MOVES ALL EXTREMITIES TO COMMAND AND STRONGLY. PT TO FLOOR PER CART WITH WALKING UP WITH PT . 1750 PT MOVED TO BED WITH ASSIST OF 3 NURSES AND SLIDE BOARD, PT DRESSING REMAINS D/I PT REPOSITIONED TO LT SIDE WITH PILLOWS AND BLANKETS AND PILLOW BETWEEN KNEES, PT TALKATIVE WANTS STEAK AND EGGS AND OJ. HANDOFF AT BEDSIDE VSS.
--- NOTE | 2020-02-29 19:04 | P.CONIM_ITS ---
Providers/Reason For Consult Consulting Physican/Specialty*: Orthopedic Reason for Consult*: Co managing the comorbid medical conditions Attending Physician: Akin Ram DO Primary Care Provider: CARMEN Alaniz History of Present Illness History of Present Illness Mg Cheatham is a 55 year old male with PMH of HTN, CAD S/P Stent ,Ca Breast as well malignant melanoma s/p excision, was admitted under orthopedic service for management of L4/5 spondylolisthesis, s/p Posterior instrumentation L4/L5. Medicine was consulted for co managing the patient for comrobid medical conditions. At the time of interaction with the patient post surgery, he is not complaining of any chest pain, sob, n/v, abdominal pain or any urinar complain. He is currently saturating well on 3Ls oxgen via nc ( more then 95 % ). Labs :Pending Vitals reviewed Review of Systems General: Reports: 10 or more systems reviewed and unremarkable except in HPI and below Const: Denies: fever(s), chills, body aches, change in appetite or diaphoresis Card: Denies: palpitations, edema, swelling of feet/ankles, dyspnea on exertion, orthopnea or leg pain with exertion Resp: Denies: dyspnea, productive cough, wheezing or pain on inspiration GI: Denies: abdominal pain, nausea, vomiting, diarrhea or constipation : Denies: flank pain or difficulty urinating Musc: Denies: back pain, extremity pain or extremity swelling Neuro: Denies: headache(s), difficulty walking or confusion Meds/Allergies Home Medications and Allergies Home Medications Medication Instructions Recorded Confirmed Last Taken Type metoprolol tartrate 25 mg tablet 25 mg PO BID 90 Days #180 tab 11/22/19 02/29/20 02/29/20 05:00 Rx rosuvastatin 20 mg tablet 20 mg PO DAILY #90 tab 12/05/19 02/29/20 1 Day Ago Rx ~02/28/20 venlafaxine 150 mg 150 mg PO QAM #90 cap 01/09/20 02/29/20 1 Day Ago Rx capsule,extended release 24 hr ~02/28/20 hydrochlorothiazide 25 mg tablet 25 mg PO DAILY #30 tab 01/12/20 02/29/20 02/29/20 10:10 Rx lisinopril 20 mg PO DAILY 02/23/20 02/29/20 1 Day Ago History ~02/28/20 tramadol 50 mg tablet 50 mg PO Q4H PRN #30 tab 02/23/20 02/29/20 1 Day Ago Rx ~02/28/20 Allergies Allergy/AdvReac Type Severity Reaction Status Date / Time morphine Allergy Unknown swelling Verified 02/28/20 12:41 Current Medications Current Medications Generic Name Dose Route Start Last Admin Trade Name Freq PRN Reason Stop Dose Admin Docusate Sodium 100 mg 02/29/20 18:00 02/29/20 18:05 Docusate Sodium 100 Mg Capsule PO 100 mg BID BRANDO Administration Fentanyl 50 mcg 02/29/20 08:11 02/29/20 17:09 Fentanyl 50 Mcg/Ml Inj 2ml IVP 03/01/20 08:11 50 mcg Q5M PRN Administration Pain level 6-10 PACU Phase I Sodium Chloride 1,000 mls @ 30 mls/hr 02/29/20 08:15 02/29/20 15:04 Sodium Chloride 0.9% IV 03/01/20 08:14 Infused .Q24H BRANDO Infusion Metoprolol Tartrate 25 mg 02/29/20 18:00 02/29/20 18:05 Metoprolol Tartrate 25 Mg Tablet PO 25 mg BID BRANDO Administration Oxycodone/Acetaminophen 1 - 2 tab 02/29/20 17:22 02/29/20 18:05 Oxycodone-Apap 5-325 Mg Tablet PO 2 tab Q4H PRN Administration BREAKTHROUGH PAIN PFSH Acute PFSH: Medical History (Updated 02/29/20 @ 19:32 by Cong Mcdaniel MD) Alcohol dependence Cervical disc disorder with myelopathy of mid-cervical region Chronic gastritis with bleeding Chronic migraine Depression Elevated hemoglobin A1c History of ID (myocardial infarction) Hypertension, benign Insomnia Instability of joint Iron deficiency anemia jail (current) use of opiate analgesic Major depressive disorder, recurrent, severe with psychotic symptoms Mixed hyperlipidemia Neuropathy, idiopathic Nicotine dependence, cigarettes, uncomplicated Pain management contract signed Polyneuropathy, peripheral sensorimotor axonal Post-operative state Spondylolisthesis of cervical region Vitamin B12 deficiency Vitamin D deficiency Surgical History History of cholecystectomy History of elbow surgery History of heart artery stent History of spinal surgery 08/14/2019 Dr. Yoel Hernandez: C3-C4, C4-C5 ACDFF Hx of appendectomy Family History Mother Alcohol abuse Sister Alcohol abuse Brother Alcohol abuse Other Unknown family medical history Social History Smoking and tobacco status: current every day smoker cigarettes Packs smoked per day: 0.25 Years cigarettes smoked: 51 [ Other cigarette details: 1 pack every 2 and half days, ] Alcohol intake: current Alcohol type: beer Lives independently: Yes Marital status: Life Partner Current occupational status: disabled History of recent travel: No Vitals/I&O/Wt Last Vital Signs Temp 97.5 F L 02/29/20 18:51 Pulse 91 02/29/20 18:51 Resp 22 H 02/29/20 18:51 BP 107/70 02/29/20 18:51 Pulse Ox 99 02/29/20 18:51 02/29/20 02/29/20 02/29/20 06:59 14:59 22:59 Intake Total 50 / 50 1500 / 1550 Output Total 150 / 150 Balance 50 / 50 1350 / 1400 Weight last 48 hrs Weight 79.379 kg Physical Exam Const: COMMON NORMALS: patient oriented x3 HENMT: COMMON NORMALS: normocephalic, atraumatic, hearing grossly normal bilaterally and external ears normal HEAD & SCALP: normocephalic and atraumatic EXTERNAL EAR: Yes external ears normal Eye: COMMON NORMALS: no scleral icterus GENERAL EYE: appearance normal, both eyes and all related structures Chest: COMMONS NORMALS: normal inspection of the chest and normal palpation of entire chest wall CHEST: Yes Symmetrical chest wall rise Resp: COMMON NORMALS: normal respiratory effort, No retractions, No use of accessory muscles and clear to auscultation bilaterally EFFORT & INSPECTION: Yes symmetric chest movement AUSCULTATION: clear to auscultation bilaterally Cardio: COMMON NORMALS: regular rate, regular rhythm, S1 normal heart sound present, S2 normal heart sound present, No gallops present (Cardio), No murmurs present (Cardio), No rub (Cardio) and Peripheral pulses 2+ throughout RATE: regular rate RHYTHM: regular rhythm HEART SOUNDS: S1 normal heart sound present and S2 normal heart sound present PERIPHERAL PULSES: Peripheral pulses 2+ throughout GI: COMMON NORMALS: Normal to inspection, nondistended, normoactive bowel sounds present, Soft to palpation, non-tender, No hepatosplenomegaly present and no masses AUSCULTATION: Yes normoactive bowel sounds PALPATION: Yes Soft to palpation and Yes No hepatosplenomegaly present RECTAL EXAM: Yes deferred Extremity: COMMON NORMALS: no clubbing, cyanosis or edema and no pedal edema Neuro: COMMON NORMALS: patient oriented x3 A&P Assessment and plan (1) HTN (hypertension): Currently B/P Well controlled. Continue Lisinopril 0 mg oral daily Continue Metoprolol .T 25 MG Q12 H DAILY Status: Acute (2) Spondylolisthesis at L4-L5 level: s/p Posterior instrumentation L4/L5 Status: Acute (3) CAD (coronary artery disease): No acute Intervention Status: Acute Additional A&P Information Code Status :Full code DVT PPX: As per Ortho Consult Attestations Medical Necessity Statement: Patient needs to be in hospital for he man agement of of L4/5 spondylolisthesis, s/p Posterior instrumentatio. Coding Level of Care Code Acute Analyst Sales for [facility] Fwd Exam Comprehensive Diagnoses HTN (hypertension) I10 Spondylolisthesis at L4-L5 level M43.16 CAD (coronary artery disease) I25.10
[2020-03-01 01:07] VITALS: BP 124/79; PULSE 92; RESP 20; TEMP 36.9; O2SAT 94
[2020-03-01 05:00] VITALS: BP 110/78; PULSE 89; RESP 20; TEMP 36.7; O2SAT 94
[2020-03-01] MEDS: enoxaparin 40 mg/0.4 mL Syringe SUBCUT (05:10)
[2020-03-01] MEDS: oxyCODONE-APAP 5-325 mg Tablet PO ×2 (05:10→09:57)
[2020-03-01] MEDS: venlafaxine ER (24HR) 150 mg Capsule PO (05:13)
[2020-03-01 05:42] LABS: Basophils % 0.1 %; Eosinophils % 0.1 %; Hematocrit 41.8 % (42.0-52.0); Hemoglobin 13.9 g/dL (11.7-16.6); Lymphocytes # 1.4 10^3/uL (0.8-4.8); Lymphocytes % 10.3 %; Mean Corpuscular HGB Conc 33.3 g/dL (30.0-36.0); Mean Corpuscular Hemoglobin 31.2 pg (28.0-34.0); Mean Corpuscular Volume 93.9 fL (80-94); Mean Platelet Volume 9.8 fL (7.4-10.4); Monocytes # 0.6 10^3/uL (0.2-0.9); Monocytes % 4.4 %; Neutrophils # 11.48 10^3/uL (1.8-7.7); Neutrophils % 84.6 %; Nucleated Red Blood Cells % 0 %; Platelet Count 209 10^3/cmm (130-400); Red Blood Count 4.45 10^6/uL (4.1-5.3); Red Cell Distribution Width 13.2 % (12.1-15.1); White Blood Count 13.6 10^3/uL (4.0-10.0)
[2020-03-01 06:02] LABS: Alanine Aminotransferase 44 U/L (0-41); Alkaline Phosphatase 94 IU/L (40-130); Anion Gap 15.1 (5-19); Aspartate Amino Transferase 100 U/L (0-40); Blood Urea Nitrogen 13 mg/dL (6-20); Calcium 9.9 mg/dL (8.5-10.5); Carbon Dioxide 26 mmol/L (22-29); Chloride 99 mmol/L (98-107); Globulin 2.7 g/dL (1.3-4.6); Glomerular Filtration Rate 116.2 mL/min (90-130); Glucose 139 mg/dL (65-115); Magnesium 1.7 mg/dL (1.7-2.3); Osmolality Calculated 284 mOsm/kg (285-295); Potassium 4.1 mmol/L (3.5-5.1); Sodium 136 mmol/L (136-145); Total Bilirubin 0.3 mg/dL (0.15-1.2); Total Protein 6.7 g/dL (6.6-8.7)
--- NOTE | 2020-03-01 07:46 | P.DS_ITS ---
Discharge Providers Date of Admission: 02/29/20 09:49 Date of Discharge: March 01, 2020 Attending Provider at Admission: Akin Ram DO Attending Provider at Discharge: Akin Ram DO Primary Care Provider: CARMEN Alaniz Diagnoses at Discharge Discharge Diagnosis (1) HTN (hypertension): Status: Acute (2) Spondylolisthesis at L4-L5 level: Status: Acute (3) CAD (coronary artery disease): Status: Acute Reason for Visit Reason for Visit: L4/5 PLIF Hospital Course Hospital Course Patient was admitted on 1112 postoperatively after having L4-5 posterior lumbar interbody fusion. This morning patient is doing well ambulating has difficulty urinating at 5 AM however is doing fine now. Patient has 5 out of 5 strength in bilateral lower extremities and plan is to discharge him home today on 03/01/2020. Physical Exam Narrative: EXAM NARRATIVE: LowerSensory (SILT)Motor StrengthHin flexion L2/3Ant/inner thigh 5/5Hip adduction L2/3 5/5Knee extension L4 Lat thigh, 5/5Toe dorsiflexion L5 5/5Ankle dorsiflexion L5/ L45Necwljs flexion S1 5/5 DTRBleeps 2+Triceps 2+Brachioradialis 2+Patellar 2+Achilles 2+ Patient up sitting in his chair. Waiting for breakfast. Discharge Data Data Completed and Pending: Pending at discharge Category Date Time Status C-arm Fluoroscopy [id number] Routine Exams 02/29/20 11:19 Taken XR lumbar spine 2 -3V* [id number] Routine Exams 03/01/20 08:00 Ordered CBC Auto Diff [Co mplete Blood Count w/Auto] AM LABS Lab 03/02/20 04:00 Ordered CBC Auto Diff [Co mplete Blood Count w/Auto] AM LABS Lab 03/03/20 04:00 Ordered Comprehensive Met abolic Panel AM LA BS Lab 03/02/20 04:00 Ordered Comprehensive Met abolic Panel AM LA BS Lab 03/03/20 04:00 Ordered Magnesium AM LABS Lab 03/02/20 04:00 Ordered Magnesium AM LABS Lab 03/03/20 04:00 Ordered Labs from last 24 hours 03/01/20 03/01/20 05:19 05:19 WBC 13.6 H RBC 4.45 Hgb 13.9 Hct 41.8 L MCV 93.9 MCH 31.2 MCHC 33.3 RDW 13.2 Plt Count 209 MPV 9.8 Neut % (Auto) 84.6 Lymph % (Auto) 10.3 [place] % (Auto) 4.4 Eos % (Auto) 0.1 Baso % (Auto) 0.1 Neut # (Auto) 11.48 H Lymph # (Auto) 1.4 [place] # (Auto) 0.6 Eos # (Auto) 0.0 Baso # (Auto) 0.0 Nucleated RBC % (a uto) 0 Nucleated RBCs # 0.0 Sodium 136 Potassium 4.1 Chloride 99 Carbon Dioxide 26 Anion Gap 15.1 BUN 13 Creatinine 0.7 GFR Calculation 116.2 Glucose 139 H Calculated Osmolal ity 284 L Calcium 9.9 Magnesium 1.7 Total Bilirubin 0.3 AST 100 H ALT 44 H Alkaline Phosphata se 94 Total Protein 6.7 Albumin 4.0 Globulin 2.7 Vitals: Last Vital Signs Temp 98.1 F 03/01/20 05:00 Pulse 89 03/01/20 05:00 Resp 20 H 03/01/20 05:00 BP 110/78 03/01/20 05:00 Pulse Ox 94 03/01/20 05:00 Discharge Plan Discharge Patient Disposition: Home Condition: Stable Prescriptions: New hydrocodone-acetaminophen 5-325 mg tablet 1 tab PO .Q4-6H PRN (Reason: pain) Qty: 60 RF: 0 Continued venlafaxine [Effexor XR] 150 mg capsule,extended release 24hr 150 mg PO QAM Qty: 90 RF: 2 metoprolol tartrate 25 mg tablet 25 mg PO BID 90 Days Qty: 180 RF: 1 rosuvastatin [Crestor] 20 mg tablet 20 mg PO DAILY Qty: 90 RF: 0 hydrochlorothiazide 25 mg tablet 25 mg PO DAILY Qty: 30 RF: 2 tramadol 50 mg tablet 50 mg PO Q4H PRN (Reason: pain) Qty: 30 RF: 0 lisinopril 10 mg tablet 20 mg PO DAILY RF: 0 Discharge Orders: Discharge Order (Routine); Ordered 03/01/20 Ordered By: Akin Ram Other Ambulatory Orders: DME: Walker (Order) Timeframe: 1 Year Location: None Selected Ordered By: Akin Ram Discharge Diet: Advance as tolerated and Usual diet Discharge Activity: Limit activity as instructed and Use walker/crutches as instructed Activity Restrictions/Additional Instructions: [facility] The following is a list of instructions, from your provider, to follow upon your discharge to ensure you have the optimal recovery from your recent injury or surgery. Follow-up care is a benton part of your treatment and safety. Be sure to make and go to all appointments, and call your doctor if you are having problems. If you do not already have a follow-up appointment made, call Dr. Ram office in the next 1-3 days to make follow up appointment for 2 weeks at [phone]. It is also a good idea to know your test results and keep a list of the medicines you take. Medications will be prescribed for you at your provider's discretion. These medications are to be used as instructed; if they are taken more often that prescribed they will not be refilled early and in most cases will not be refilled at all. > When a refill is needed,you should contact cammie lindsay 2-3 business days before your prescription runs out. Medications will NOT be refilled by monitoring manager providers after hours! > Many pain medications contain Tylenol (Acetaminophen). Do not consume more than 4,000 mg of Tylenol per day in total with any combination ofmedications. > Pain medications can cause constipation. Please use an over the counter stool softener as directed, while taking pain medications. Consulty our local pharmacist with questions or recommendations on stool softeners. If constipation persists, contact our office or your primary care provider. > While under our care,you are not to receive pain medications or other controlled substances from any other provider unless our office is notified and approves. Any attempts to do so will result in refusal to prescribe any further pain medications and possible dismissal from our practice. ? Your wound and/or dressing should remain clean and dry for 2 days after surgery. On postoperative day 2 (48 hours after your surgery) the dressing (if present) should be removed and it is okay to shower and get the incision wet. Pad dry afterwards. No further dressing should be required from that point on. Do not put any creams or ointments on theincision > It is normal for there to be a small amount of discharge (bloody or blood tinged) present from a surgical wound for the first 1-3days. > The wound should be examined twice a day for signs of infection. Mild redness or bruising is to be expected but indications that an infection maybe starting would include; An increase in redness, swelling, or discharge, a foul odor present around the incision, and/or a fever greater than 101 ?F ? Showering is permitted, however we ask that you do not take a bath, sit in a whirlpool / Jacuzzi, or go swimming for 1 month. For only the first 2 days after surgery, lt wilt be necessary for you to cover your wound/dressing with plastic and tape to keep it dry. ? Walking is essential for the healing process after surgery. We would like you to slowly advance your walking. This should be done on relatively flat clear ground (inside or out) or can be done on a treadmill. Remember this goal does not have to happen all at once, slowly increase your distance and duration. This can be broken into more more than one walk per day as tolerated. Patients who walk as directed after surgery rarely require Physical Therapy. In the unlikely event this issue arises your provider will direct hospital staff to make the appropriate arrangements. ? No lifting over 5 pounds {a gallon of milk) or bending/twisting until further notice. Each of these activities places an unnecessary amount of stress onto the body and can impede the delicate healing process. > Instead of bending at the waist, keep your back straight and bend at the knees. > Instead of twisting your torso, keep your back straight and turn your entire body with your feet. ? You may sleep in any position which makes you comfortable. Many patients find comfort sleeping in a reclining chair. It is not abnormal to have difficulty sleeping for the first several weeks following your surgery. We recommend trying Benadry! or Tylenol PM as directed to help with your sleeping difficulties. Both medications are over the counter and available withoutprescription. ? NO SMOKING!!! Smoking dramatically increases the probability of developing postoperative wound infections. ? Common complaints after lumbar and/or thoracic spine surgery include, but are not limited to: numbness and/or tingling in the legs, pain around the incision and surrounding tissues, muscle spasms, or stiffness of the middle to low back. Contact our office if these symptoms persist or if an acute change occurs. ? No driving for the first 3-5days, and not while taking narcotics [] until seen at your follow-up appointment and cleared. There are no restrictions for riding on short trips, however if you take a longer trip, arrangements sh ould be made to make regular stops to get out of the vehicle and stretch . ? Swelling is an unfortunate event that will take place with any surgery and is the primary source of your postoperative discomfort. While walking and regular approved activities helps control inflammation, there are additional steps you can take to minimizeswelling. > Place ice over the surgical site and surrounding tissue for twenty minutes, followed by applying a low/medium heat (heating pad) for an additional twenty minutes every 1-2 hours as needed for painrelief. > You may use of over the counter anti-inflammatory medications (Ibuprofen, Motrin, Aleve, Advil, etc) as directed on the package label. These types of medicines wm significantly reduce the amount of discomfort you experience after surgery from swelling. It should be noted that if you have and allergy to any of these medications, or a history of ulcers or kidney disease you should consult you primary care provider prior to starting these medications. Discharge Attestations Time Spent in Discharge Care*: greater than 30 min Specific Discharge Activities: educating patient Time Spent in Smoking Cessation: 3 to 10 minutes Status at Discharge: Cognitive status at discharge: cognitively intact , Behavioral status at discharge: cooperative , Functional status at discharge: uses cane/walker Quality Metrics Clinical Quality Measures During this hospital stay, did patient experience: None Coding Level of Care Code Acute International Recruiter for [facility] Diagnoses HTN (hypertension) I10 Spondylolisthesis at L4-L5 level M43.16 CAD (coronary artery disease) I25.10
--- NOTE | 2020-03-01 07:57 | PC.RESP ---
SMOKING CESSATION INFORMATION SENT TO PATIENT.
--- NOTE | 2020-03-01 08:00 | XR_ITS ---
WS: [id number] Lumbar spine, 3 views, 03/01/2020 Clinical Data: post op Comparison: Operating room C-arm fluoroscopy AP and lateral views of the lumbar spine, 02/29/2020 Findings: The patient has had a posterior lumbar fusion at L4-L5 with bilateral pedicle screws connected with r ods. There is an interbody cage at L4-L5. There is a laminectomy at L4. The upper lumbar vertebral bodies are unremarkable. The transverse processes and SI joints are normal . There is calcification in the wall of the abdominal aorta but no aneurysm is seen. XR/XR lumbar spine 2-3V* [id number] Impression: Posterior lumbar fusion of L4-L5 with interbody cage.
[2020-03-01 08:11] VITALS: PULSE 82; RESP 16; O2SAT 98
[2020-03-01 08:15] VITALS: BP 128/75; PULSE 80; RESP 16; TEMP 37.1; O2SAT 97
[2020-03-01 09:57] VITALS: RESP 16
[2020-03-01] MEDS: docusate sodium 100 mg Capsule PO (10:00)
[2020-03-01] MEDS: lisinopril 10 mg Tablet 20 MG PO (10:00)
[2020-03-01] MEDS: atorvastatin 40 mg Tablet 80 MG PO (10:00)
[2020-03-01] MEDS: metoprolol tartrate 25 mg Tablet PO (10:00)
[2020-03-01] MEDS: hydroCHLOROthiazide 25 mg Tablet PO (10:01)
[2020-03-01 11:45] VITALS: BP 128/75; PULSE 80; RESP 16; TEMP 37.1; O2SAT 97
--- NOTE | 2020-03-01 12:28 | PC.NURSE ---
DC instruction given, voiced full understanding.IV DC'd cath intact bleeding controlled with 2x2 and coban. Pt to main entrance via wheelchair to personal vehicle with zero difficulties.
--- NOTE | 2020-03-01 16:30 | PC.OT ---
OT EVALUATION ORDERS RECEIVED. PATIENT DISCHARGED BEFORE EVALUATION COULD BE COMPLETED.
== END 2020-03-01 12:28 | disposition home or self-care (01) | DRG 454 ==
PROVIDERS: Internal Medicine; Admitting Provider Orthopaedic Surgery; PCP Nurse Practitioner Family; Visit Provider Orthopaedic Surgery
PROC: 0SG00AJ Fusion of Lumbar Vertebral Joint with Interbody Fusion Device, Posterior Approach, Anterior Column, Open Approach (ICD-10-PCS; principal; 2020-02-29 11:10)
DX: M43.16 Spondylolisthesis, lumbar region (principal); G95.89 Other specified diseases of spinal cord; I10 Essential (primary) hypertension; I25.10 Atherosclerotic heart disease of native coronary artery without angina pectoris; Z95.5 Presence of coronary angioplasty implant and graft; Z85.3 Personal history of malignant neoplasm of breast; Z85.820 Personal history of malignant melanoma of skin; F32.9 Major depressive disorder, single episode, unspecified; I25.2 Old myocardial infarction; G47.00 Insomnia, unspecified; E78.2 Mixed hyperlipidemia; F17.210 Nicotine dependence, cigarettes, uncomplicated
CPT/HCPCS: 12345; 72020; 72100; 76000; 80053; 83735; 85025; 87635; 93005; 96365; 96372; 97116; 97161; 97530; C1713; C9359; J0131; J0330; J0690; J1100; J1644; J1650; J2405; J2704; J2710; J3010; J3490; J7030

== ENCOUNTER → 2020-03-27 07:25 | Outpatient (BNVA) | payer MEDICARE, MEDICAID, SELFPAY | PROVIDERS: PCP Nurse Practitioner Family; Visit Provider Nurse Practitioner Psychiatric/Mental Health | DX: F33.3 Major depressive disorder, recurrent, severe with psychotic symptoms (principal); F17.210 Nicotine dependence, cigarettes, uncomplicated; F10.21 Alcohol dependence, in remission | CPT/HCPCS: 99214 ==

== ENCOUNTER 2020-04-13 14:22 | Emergency (ER) | payer MEDICARE, MEDICAID, SELFPAY ==
[2020-04-13 14:24] VITALS: PULSE 84; RESP 18; TEMP 37; O2SAT 95; BMI 27.0
--- NOTE | 2020-04-13 14:56 | XRR_ITS ---
PROCEDURE INFORMATION: Exam: XR Cervical Spine, 4 or 5 Views Exam date and time: 04/13/2020 2:57 PM Age: 55 years old Clinical indication: Neck pain; Prior surgery TECHNIQUE: Imaging protocol: XR of the cervical spine, 4 or 5 views. COMPARISON: CT cervical spin wo con* [id number] 10/13/2019 3:14 PM FINDINGS: Bones/joints: Vertebral body height is maintained. No subluxation. Bones are diffusely osteopenic. Post-surgical changes consistent with previous spine fusion from C3 through C5. No evidence for loosening of the spinal hardware. No acute fracture. Soft tissues: No prevertebral soft tissue swelling. No radiopaque foreign body. Dental: The patient is edentulous. Lungs: Visualized lungs are clear. XR/XR cervical spine 3V* [id number] IMPRESSION: 1. No acute fracture of the cervical spine. CT scan would be recommended if there is continuing clinical concern for fracture. 2. Post-surgical changes consistent with previous spine fusion from C3 through C5. No evidence for loosening of the spinal hardware. 3. Incidental/nonacute findings are listed in the report.
--- NOTE | 2020-04-13 14:58 | ED_ITS ---
HPI - Back Pain/Injury General: Chief Complaint: Back Pain/Injury Stated Complaint: NECK AND BACK PAIN S/P FALL Time Seen by Provider: 04/13/20 14:23 History of Present Illness: HPI Narrative: 55-year-old male presents emergency room with complaint of neck pain and spasms. He thinks he twisted his neck a bit a few days ago while playing with his dog thought he hyperextended a bit. He does not have any trauma or injuries or car accidents recently. Today he was riding on a lawnmower to travel to where his had broken down with a vehicle. In route he began to have neck spasms and was essentially disabled could not drive any further or walk and ambulance was called he was brought in via EMS there is pain in his neck but no discomfort radiating into his arms. He has previously had neck and back pain. MD elicited complaint: other (Neck pain) Onset (ago): minute(s) Timing: intermittent Severity: severe Similar Symptoms Previously: Yes Quality: sharp Exacerbating factors: movement Context: turning/twisting Associated symptoms: Reports arthralgias; Deny abdominal pain, chills, change in bowel habits, difficulty walking, dysuria, fatigue, fecal incontinence, fever(s), hematuria, myalgias, nausea, numbness, syncope, tingling/numbness/burning, urinary frequency, urinary urgency, vomiting or weakness Review of Systems Const: Denies: fever(s), chills or fatigue ENMT: Denies: throat pain, ear or mastoid pain, nasal discharge or nasal congestion Card: Denies: syncope Resp: Denies: dyspnea, productive cough or non-productive cough GI: Denies: abdominal pain, nausea, vomiting, fecal incontinence or change in bowel habits : Denies: dysuria, urinary urgency or hematuria Skin/Breast: Denies: rash or pruritus Neuro: Denies: difficulty walking PFSH ED PFSH: Medical History Alcohol dependence Cervical disc disorder with myelopathy of mid-cervical region Chronic gastritis with bleeding Chronic migraine Depression Elevated hemoglobin A1c History of ID (myocardial infarction) Hypertension, benign Insomnia Instability of joint Iron deficiency anemia alf (current) use of opiate analgesic Major depressive disorder, recurrent, severe with psychotic symptoms Mixed hyperlipidemia Neuropathy, idiopathic Nicotine dependence, cigarettes, uncomplicated Pain management contract signed Polyneuropathy, peripheral sensorimotor axonal Post-operative state Spondylolisthesis of cervical region Vitamin B12 deficiency Vitamin D deficiency Surgical History History of cholecystectomy History of elbow surgery History of heart artery stent History of spinal surgery 08/14/2019 Dr. Yoel Hernandez: C3-C4, C4-C5 ACDFF Hx of appendectomy Family History Mother Alcohol abuse Sister Alcohol abuse Brother Alcohol abuse Other Unknown family medical history Social History Smoking and tobacco status: current every day smoker cigarettes Packs smoked per day: 0.25 Years cigarettes smoked: 51 [ Other cigarette details: 1 pack every 2 and half days, ] Alcohol intake: current Alcohol type: beer Lives independently: Yes Marital status: Life Partner Current occupational status: disabled History of recent travel: No Physical Exam 2 Const: COMMON NORMALS: no acute distress GENERAL APPEARANCE: cooperative and comfortable ORIENTATION/CONSCIOUSNESS: Yes awake, Yes oriented to person, Yes oriented to place and Yes oriented to time HENMT: COMMON NORMALS: normocephalic, atraumatic and hearing grossly normal bilaterally HEAD & SCALP: normocephalic and atraumatic Neck/C-Spine: OTHER: Immobilized in a c-collar Resp: COMMON NORMALS: normal respiratory effort, No retractions, No use of accessory muscles and clear to auscultation bilaterally AUSCULTATION: clear to auscultation bilaterally Cardio: COMMON NORMALS: regular rate, regular rhythm and No murmurs present (Cardio) RATE: regular rate RHYTHM: regular rhythm GI: COMMON NORMALS: Soft to palpation and No hepatosplenomegaly present AUSCULTATION: Yes normoactive bowel sounds PALPATION: Yes Soft to palpation, No Tenderness to palpation present (GI), No Guarding due to palpation present (GI) and Yes No hepatosplenomegaly present Extremity: COMMON NORMALS: normal to inspection, capillary refill normal, no clubbing, cyanosis or edema, no calf tenderness and no pedal edema Neuro: SENSORIUM/ORIENTATION: Yes oriented to person, Yes oriented to place and Yes oriented to time Skin: COMMON NORMALS: no rashes or lesions noted GENERAL SKIN EXAM: no rashes or lesions noted Course Vital Signs: Vital signs: Vital Signs Temperature 98.6 F 04/13/20 14:24 Pulse Rate 84 04/13/20 14:24 Respiratory Rate 18 04/13/20 14:24 Pulse Oximetry 95 04/13/20 14:24 MDM - Back Pain/Injury MDM Narrative: Medical decision making narrative: Patient has continued to have intermittent spasms in the neck sees fine films do not show any acute fracture he has hydrocodone at home as well as cyclobenzaprine will hold the cyclobenzaprine switch him to tizanidine and start him on diclofenac as well can continue the hydrocodone follow-up with primary care doctor Discharge Plan Discharge Patient Disposition: Home Clinical Impression: Cervical paraspinal muscle spasm Condition: Stable Prescriptions: New diclofenac sodium 75 mg tablet,delayed release (DR/EC) 75 mg PO Q12H PRN (Reason: pain) Qty: 20 RF: 0 tizanidine 4 mg capsule 4 mg PO Q8H PRN (Reason: muscle spasticity) Qty: 30 RF: 0 Held cyclobenzaprine 5 mg tablet 5 mg PO TID PRN (Reason: muscle spasm) 7 Days Qty: 21 RF: 0 Hold Instructions: Resume on 04/22/20. No Action venlafaxine [Effexor XR] 150 mg capsule,extended release 24hr 150 mg PO QAM Qty: 90 RF: 2 trazodone 50 mg tablet 50 mg PO .bedtime PRN (Reason: sleep) Qty: 30 RF: 3 Adacel(Tdap Adolesn/Adult)(PF) 2 Lf-(2.5-5-3-5 mcg)-5Lf/0.5 mL syringe 0.5 ml IM ONCE Qty: 0.5 RF: 0 metoprolol tartrate 25 mg tablet 25 mg PO BID 90 Days Qty: 180 RF: 1 rosuvastatin [Crestor] 20 mg tablet 20 mg PO DAILY Qty: 90 RF: 0 hydrochlorothiazide 25 mg tablet 25 mg PO DAILY Qty: 30 RF: 2 hydrocodone-acetaminophen 5-325 mg tablet 1 tab PO Q8H PRN (Reason: pain) 7 Days Qty: 21 RF: 0 doxycycline hyclate 100 mg capsule 100 mg PO BID 7 Days Qty: 14 RF: 0 lisinopril 10 mg tablet See Rx Instructions .ROUTE .COMPLEX Qty: 90 RF: 1 amoxicillin-pot clavulanate [Augmentin] 875-125 mg tablet 1 tab PO Q12H 7 Days Qty: 14 RF: 0 Discharge Orders: Discharge ED (Routine); Ordered 04/13/20 Ordered By: Geoffrey Otero Referrals: HAIR Hill, CHILD DEVELOPMENT DIRECTOR [Primary Care Provider] - Coding Level of Care Code ED 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
[2020-04-13] MEDS: HYDROcodone-acetaminophen 5-325 mg Tablet 1 TAB PO (15:39)
[2020-04-13] MEDS: orphenadrine 30 mg/mL Inj 2 mL 60 MG IM (15:40)
[2020-04-13] MEDS: ketorolac 60 mg/2 mL INJ IM (15:40)
[2020-04-13] MEDS: diazePAM 5 mg Tablet PO (16:40)
[2020-04-13 16:59] VITALS: BP 109/86; PULSE 94; RESP 18; O2SAT 98
== END 2020-04-13 16:59 | disposition home or self-care (01) ==
PROVIDERS: Emergency Provider Family Medicine; PCP Nurse Practitioner Family
DX: M62.838 Other muscle spasm (principal); I25.2 Old myocardial infarction; I10 Essential (primary) hypertension; E78.2 Mixed hyperlipidemia; F17.210 Nicotine dependence, cigarettes, uncomplicated
CPT/HCPCS: 12345; 72040; 96372; 99281; 99283; J1885; J2360

== ENCOUNTER → 2020-04-23 08:15 | Outpatient (BNVA) | payer MEDICARE, MEDICAID, SELFPAY | PROVIDERS: PCP Nurse Practitioner Family; Visit Provider Orthopaedic Surgery | DX: Z01.812 Encounter for preprocedural laboratory examination (principal); M48.061 Spinal stenosis, lumbar region without neurogenic claudication; M43.16 Spondylolisthesis, lumbar region; M54.9 Dorsalgia, unspecified; Z98.890 Other specified postprocedural states; Z20.828 Contact with and (suspected) exposure to other viral communicable diseases | CPT/HCPCS: 72114 ==

== ENCOUNTER → 2020-05-08 07:32 | Outpatient (BNVA) | payer MEDICARE, MEDICAID, SELFPAY | PROVIDERS: PCP Nurse Practitioner Family; Visit Provider Nurse Practitioner Psychiatric/Mental Health | DX: F33.3 Major depressive disorder, recurrent, severe with psychotic symptoms (principal); F17.210 Nicotine dependence, cigarettes, uncomplicated; F10.21 Alcohol dependence, in remission | CPT/HCPCS: 99214 ==

== ENCOUNTER 2020-06-07 00:20 | Emergency (ER) | payer MEDICARE, MEDICAID, SELFPAY ==
[2020-06-07 00:35] VITALS: BP 149/82; PULSE 90; RESP 22; TEMP 36.4; O2SAT 100; BMI 26.4
--- NOTE | 2020-06-07 00:53 | CTR_ITS ---
PROCEDURE INFORMATION: Exam: CT Abdomen And Pelvis With Contrast Exam date and time: 06/07/2020 1:01 AM Age: 55 years old Clinical indication: Abdominal pain; Localized; Left lower quadrant (llq); Prior surgery; Surgery type: Lumbar fusion; Patient HX: Llq pain and constipation; Additional info: Llq abdominal pain TECHNIQUE: Imaging protocol: Computed tomography of the abdomen and pelvis with contrast. Radiation optimization: All CT scans at this facility use at least one of these dose optimization techniques: automated exposure control; mA and/or kV adjustment per patient size (includes targeted exams where dose is matched to clinical indication); or iterative reconstruction. Contrast material: VISI 320; Contrast volume: 95 ml; Contrast route: INTRAVENOUS (IV); COMPARISON: CR (PELVIS, ) 04/23/2020 8:21 AM RADIATION DOSE METRICS: Total DLP (mGy-cm): 724.65 FINDINGS: Liver: Normal. No mass. Gallbladder and bile ducts: Status post cholecystectomy. Pancreas: Normal. No ductal dilation. Spleen: Normal. No splenomegaly. Adrenal glands: Normal. No mass. Kidneys and ureters: There is a 1 cm hypoattenuation cystic lesions seen on the upper pole of the left kidney likely representing a simple cyst. Stomach and bowel: Unremarkable. No obstruction. No mucosal thickening. Appendix: No evidence of appendicitis. Intraperitoneal space: Unremarkable. No free air. No significant fluid collection. Vasculature: Calcifications are seen within the abdominal aorta, iliac arteries and femoral arteries bilaterally. Lymph nodes: Unremarkable. No enlarged lymph nodes. Urinary bladder: There is mild bladder wall thickening although the bladder is nondistended. Reproductive: Unremarkable as visualized. Bones/joints: Status post PLIF L4-L5. Soft tissues: Unremarkable. CT/CT abdomen pelvis w con* [id number] IMPRESSION: 1. There are no acute abdominal findings. 2. 1 cm hypoattenuation cystic lesion in the upper pole of the left kidney compatible with a simple cyst. No further workup needed. COMMENTS: Consistent with the [employer]'s Incidental Findings Committee white paper (J Am Shyanne Radiol 2018): Any incidental renal lesion less than 1 cm or classified as too small to characterize, or any incidental cystic renal lesion characterized as simple-appearing, is likely benign. No follow-up imaging is recommended for these lesions per consensus recommendations based on imaging criteria. Radiation Dose CTDIVOL = (mGy): DLP = 724.65 (mGy-cm)
--- NOTE | 2020-06-07 00:57 | W.ED.ABDPA2 ---
HPI - Abdominal Pain General: Chief Complaint: Abdominal Pain Stated Complaint: abd pain Time Seen by Provider: 06/07/20 00:42 History of Present Illness: HPI narrative: Patient is a 55-year-old male who comes to the ER complaining of diffuse abdominal pain worse in the left and left lower quadrants. Pains been going on for 5 days and he says he had this about 18 months ago when he was having bad gas pains. He says he also has hemorrhoids and has not had a normal bowel movement in 5 days. He says it feels like he needs to poop but it will not come out and he is straining with no bowel movement. He says he feels like his abdomen is mildly distended. MD elicited complaint: abdominal pain Pertinent past history: constipation Onset (ago): day(s) (5) Location: Diffuse, LUQ and LLQ Severity: moderate Quality: cramping and sharp Associated Symptoms: Reports no associated symptoms; Denies GI cramping and diarrhea Review of Systems General: Reports: 10 or more systems reviewed and unremarkable except in HPI and below Const: Denies: fatigue Eyes: Denies: change in vision, blurry vision or eye redness ENMT: Denies: throat pain, swelling of lips/tongue, ear or mastoid pain or nasal congestion Card: Denies: chest pain, palpitations, irregular heart rhythm, edema, dyspnea on exertion or orthopnea Resp: Denies: dyspnea, productive cough or non-productive cough GI: Denies: abdominal pain, diarrhea or GI cramping : Denies: flank pain, urinary frequency or urinary urgency Musc: Denies: neck pain, back pain, extremity pain, joint pain, joint redness, limited range of motion or muscle weakness Skin/Breast: Denies: rash, pruritus, erythema, skin pain or skin tenderness Neuro: Denies: headache(s), numbness in extremities, weakness in extremities, sensory changes, difficulty walking, dizziness, confusion or Slurred speech present Psych: Denies: anxiety or depression Endo: Denies: polyuria All/Imm: Denies: urticaria, throat swelling or tongue swelling PFSH ED PFSH: Medical History Alcohol dependence Cervical disc disorder with myelopathy of mid-cervical region Chronic gastritis with bleeding Chronic migraine Depression Elevated hemoglobin A1c History of [place] (myocardial infarction) Hypertension, benign Insomnia Instability of joint 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 Yoel Hernandez: C3-C4, C4-C5 ACDFF Hx of appendectomy Family History Mother Alcohol abuse Sister Alcohol abuse Brother Alcohol abuse Other Unknown family medical history Social History Smoking and tobacco status: current every day smoker cigarettes Packs smoked per day: 0.25 Years cigarettes smoked: 51 [ Other cigarette details: 1 pack every 2 and half days, ] Alcohol intake: current Alcohol type: beer Lives independently: Yes Marital status: Life Partner Current occupational status: disabled History of recent travel: No Physical Exam Const: COMMON NORMALS: no acute distress, average body habitus, patient oriented x3, no limitations, healthy appearing, alert and well nourished GENERAL APPEARANCE: cooperative, comfortable, well kempt and well developed ORIENTATION/CONSCIOUSNESS: Yes awake, Yes oriented to person, Yes oriented to place and Yes oriented to time HENMT: COMMON NORMALS: normocephalic, external ears normal and Normal external nose present HEAD & SCALP: normal to inspection and normocephalic NOSE: Normal external nose present EXTERNAL EAR: Yes external ears normal MOUTH: Normal oral and palatal mucosa present THROAT: posterior oropharynx normal Eye: COMMON NORMALS: Equal, round and reactive pupils present and EOMs intact bilaterally GENERAL EYE: appearance normal, both eyes and all related structures PUPIL: Yes Equal, round and reactive pupils present Neck/C-Spine: COMMON NORMALS: full ROM, no lymphadenopathy, no meningeal signs and no JVD GENERAL: Yes normal visual inspection Lymph: LYMPHATIC: no lymphadenopathy noted Chest: COMMONS NORMALS: normal inspection of the chest and normal palpation of entire chest wall Resp: COMMON NORMALS: normal respiratory effort, No retractions, No use of accessory muscles, clear to auscultation bilaterally and percussion normal EFFORT & INSPECTION: Yes able to speak in complete sentences AUSCULTATION: clear to auscultation bilaterally PERCUSSION: percussion normal Cardio: COMMON NORMALS: no JVD, regular rate, regular rhythm, S1 normal heart sound present, S2 normal heart sound present and Peripheral pulses 2+ throughout RATE: regular rate RHYTHM: regular rhythm HEART SOUNDS: S1 normal heart sound present and S2 normal heart sound present PERIPHERAL PULSES: Peripheral pulses 2+ throughout GI: COMMON NORMALS: Normal to inspection, nondistended, normoactive bowel sounds present, Soft to palpation and no masses INSPECTION: Yes normal to inspection PALPATION: Yes Soft to palpation OTHER: Mild diffuse abdominal tenderness worse in the left upper and worst in the left lower quadrant. GI image (male): 1. Tenderness. No rebound tenderness : COMMON NORMALS: Yes no CVA tenderness BLADDER/KIDNEY EXAM: Yes no CVA tenderness Back/Pelvis: COMMON NORMALS: no CVA tenderness, thoracic and lumbar spine normal to inspection, no thoracic nor lumbar tenderness and thoraco-lumbar ROM normal Extremity: COMMON NORMALS: normal to inspection, full ROM, capillary refill normal, no joint enlargement and no pedal edema GENERAL: Yes normal exam except as noted Neuro: COMMON NORMALS: patient oriented x3, CN's II-XII intact bilaterally, moves all extremities, no focal motor deficits, no sensory deficits noted and gait normal SENSORIUM/ORIENTATION: Yes alert, Yes oriented to person, Yes oriented to place and Yes oriented to time MENINGEAL SIGNS: Yes no meningeal signs Psych: COMMON NORMALS: mental status grossly normal, Normal thought process present, cooperative, normal affect and speech normal APPEARANCE: Yes well kempt ATTITUDE: Yes calm SPEECH: Yes normal speech THOUGHT PROCESS: Normal thought process present Skin: COMMON NORMALS: no rashes or lesions noted GENERAL SKIN EXAM: no rashes or lesions noted Course Vital Signs: Vital signs: Vital Signs Temperature 97.6 F 06/07/20 00:35 Pulse Rate 90 06/07/20 00:35 Respiratory Rate 22 H 06/07/20 00:35 Blood Pressure 149/82 06/07/20 00:35 Pulse Oximetry 100 06/07/20 00:35 MDM - Abdominal Pain MDM Narrative: Medical decision making narrative: The patient comes in today complaining of abdominal pain. Mild elevated white count and tender on the left side. CT abdomen pelvis is normal. Likely constipation causing his pain. Discharged with magnesium citrate and instructed how to use it. Lab Data: Labs: Lab Results 06/06/20 06/06/20 06/07/20 Range/Units 23:21 23:21 01:05 WBC 12.1 H (4.0-10.0) 10^3/ uL RBC 5.08 (4.1-5.3) 10^6/u L Hgb 15.8 (11.7-16.6) g/dL Hct 47.4 (42.0-52.0) % MCV 93.3 (80-94) fL MCH 31.1 (28.0-34.0) pg MCHC 33.3 (30.0-36.0) g/dL RDW 12.8 (12.1-15.1) % Plt Count 243 (130-400) 10^3/c mm MPV 9.9 (7.4-10.4) fL Neut % (Auto) 47.8 % Lymph % (Auto) 42.5 % Grant % (Auto) 6.4 % Eos % (Auto) 2.6 % Baso % (Auto) 0.4 % Neut # (Auto) 5.80 (1.8-7.7) 10^3/u L Lymph # (Auto) 5.2 H (0.8-4.8) 10^3/u L Grant # (Auto) 0.8 (0.2-0.9) 10^3/u L Eos # (Auto) 0.3 (0.0-0.8) 10^3/u L Baso # (Auto) 0.1 (0.0-0.1) 10^3/u L Nucleated RBC % (a uto) 0 % Nucleated RBCs # 0.0 /100WBC Sodium 139 (136-145) mmol/L Potassium 3.7 (3.5-5.1) mmol/L Chloride 102 (98-107) mmol/L Carbon Dioxide 24 (22-29) mmol/L Anion Gap 16.7 (5-19) BUN 16 (6-20) mg/dL Creatinine 0.7 (0.7-1.2) mg/dL GFR Calculation 116.2 (90-130) mL/min Glucose 82 (65-115) mg/dL Calculated Osmolal ity 288 (285-295) mOsm/k g Calcium 9.7 (8.5-10.5) mg/dL Total Bilirubin 0.2 (0.15-1.2) mg/dL AST 23 (0-40) U/L ALT 18 (0-41) U/L Alkaline Phosphata se 89 (40-130) IU/L Total Protein 7.7 (6.6-8.7) g/dL Albumin 4.5 (3.5-5.2) g/dL Globulin 3.2 (1.3-4.6) g/dL Lipase 33 (13-60) U/L Urine Color Yellow (Yellow) Urine Appearance Clear (CLEAR) Urine pH 5 (5-7) Ur Specific Gravit y 1.010 (1.005-1.030) Urine Protein Neg (Negative) Urine Glucose (UA) Norm (Normal) Urine Ketones Negative (Negative) Urine Blood Neg (Negative) Urine Nitrate Negative (Negative) Urine Bilirubin Neg (Negative) Urine Urobilinogen Norm (Negative) mg/dL Ur Leukocyte Nicolle ase Negative (Negative) Discharge Plan Discharge Patient Disposition: Home Clinical Impression: Constipation Condition: Stable Prescriptions: No Action venlafaxine [Effexor XR] 150 mg capsule,extended release 24hr 150 mg PO QAM Qty: 90 RF: 2 trazodone 100 mg tablet 100 mg PO .bedtime PRN (Reason: insomnia) Qty: 30 RF: 3 Adacel(Tdap Adolesn/Adult)(PF) 2 Lf-(2.5-5-3-5 mcg)-5Lf/0.5 mL syringe 0.5 ml IM ONCE Qty: 0.5 RF: 0 metoprolol tartrate 25 mg tablet 25 mg PO BID 90 Days Qty: 180 RF: 1 rosuvastatin [Crestor] 20 mg tablet 20 mg PO DAILY Qty: 90 RF: 0 hydrochlorothiazide 25 mg tablet 25 mg PO DAILY Qty: 30 RF: 2 hydrocodone-acetaminophen 5-325 mg tablet 1 tab PO Q8H PRN (Reason: pain) 7 Days Qty: 21 RF: 0 doxycycline hyclate 100 mg capsule 100 mg PO BID 7 Days Qty: 14 RF: 0 lisinopril 10 mg tablet See Rx Instructions .ROUTE .COMPLEX Qty: 90 RF: 1 amoxicillin-pot clavulanate [Augmentin] 875-125 mg tablet 1 tab PO Q12H 7 Days Qty: 14 RF: 0 cyclobenzaprine 5 mg tablet 5 mg PO TID PRN (Reason: muscle spasm) 7 Days Qty: 21 RF: 0 Hold Instructions: Resume on 04/22/20. diclofenac sodium 75 mg tablet,delayed release (DR/EC) 75 mg PO Q12H PRN (Reason: pain) Qty: 20 RF: 0 tizanidine 4 mg capsule 4 mg PO Q8H PRN (Reason: muscle spasticity) Qty: 30 RF: 0 Discharge Orders: Discharge ED (Routine); Ordered 06/07/20 Ordered By: John Kurtz Referrals: HA[facility], MOTOR EQUIPMENT LIEUTENANT [Primary Care Provider] - Discharge Diet: Advance as tolerated Discharge Activity: Resume usual activity Patient Instructions: Constipation (ED), Opioid Safety Activity Restrictions/Additional Instructions: You are most likely suffering from constipation. Please take the magnesium citrate and it should produce a bowel movement within a couple hours. Return to the ER with worsening symptoms. Follow-up with your primary care physician in a couple days to monitor improvement of symptoms Coding Level of Care Code ED Food Analyst for Normang Fwd Exam Comprehensive
[2020-06-07] MEDS: ketorolac 30 mg/mL INJ 15 MG IVP (01:06)
[2020-06-07 01:07] LABS: Basophils # 0.1 10^3/uL (0.0-0.1); Basophils % 0.4 %; Eosinophils # 0.3 10^3/uL (0.0-0.8); Eosinophils % 2.6 %; Hematocrit 47.4 % (42.0-52.0); Hemoglobin 15.8 g/dL (11.7-16.6); Lymphocytes # 5.2 10^3/uL (0.8-4.8); Lymphocytes % 42.5 %; Mean Corpuscular HGB Conc 33.3 g/dL (30.0-36.0); Mean Corpuscular Hemoglobin 31.1 pg (28.0-34.0); Mean Corpuscular Volume 93.3 fL (80-94); Mean Platelet Volume 9.9 fL (7.4-10.4); Monocytes # 0.8 10^3/uL (0.2-0.9); Monocytes % 6.4 %; Neutrophils % 47.8 %; Nucleated Red Blood Cells % 0 %; Platelet Count 243 10^3/cmm (130-400); Red Blood Count 5.08 10^6/uL (4.1-5.3); Red Cell Distribution Width 12.8 % (12.1-15.1); White Blood Count 12.1 10^3/uL (4.0-10.0)
[2020-06-07 01:09] LABS: Add Urine Microscopic? NO
[2020-06-07] MEDS: iodixanol 320 mg/mL 100mL Btl IV (01:12)
[2020-06-07 01:18] LABS: Alanine Aminotransferase 18 U/L (0-41); Albumin Level 4.5 g/dL (3.5-5.2); Alkaline Phosphatase 89 IU/L (40-130); Anion Gap 16.7 (5-19); Aspartate Amino Transferase 23 U/L (0-40); Blood Urea Nitrogen 16 mg/dL (6-20); Calcium 9.7 mg/dL (8.5-10.5); Carbon Dioxide 24 mmol/L (22-29); Chloride 102 mmol/L (98-107); Globulin 3.2 g/dL (1.3-4.6); Glomerular Filtration Rate 116.2 mL/min (90-130); Glucose 82 mg/dL (65-115); Lipase 33 U/L (13-60); Osmolality Calculated 288 mOsm/kg (285-295); Potassium 3.7 mmol/L (3.5-5.1); Sodium 139 mmol/L (136-145); Total Bilirubin 0.2 mg/dL (0.15-1.2); Total Protein 7.7 g/dL (6.6-8.7)
[2020-06-07 01:39] LABS: Bilirubin Urine Neg (Negative); Blood Urine Neg (Negative); Glucose Urine UA Norm (Normal); Ketones Urine Negative (Negative); Leukocyte Esterase Urine Negative (Negative); Nitrate Urine Negative (Negative); Protein Urine Neg (Negative); Urine Appearance Clear (CLEAR); Urine Color Yellow (Yellow); Urobilinogen Urine Norm (Negative); pH Urine 5 (5-7)
[2020-06-07 02:13] LABS: Lactate (Lactic Acid level) 1.6 mmol/L (0.5-2.2)
[2020-06-07] MEDS: magnesium citrate Btl 296 mL PO (02:36)
[2020-06-07 02:40] VITALS: BP 118/82; PULSE 85; RESP 18; O2SAT 99
== END 2020-06-07 02:42 | disposition home or self-care (01) ==
PROVIDERS: Emergency Provider Family Medicine; PCP Nurse Practitioner Family
DX: K59.00 Constipation, unspecified (principal); F17.210 Nicotine dependence, cigarettes, uncomplicated; I25.2 Old myocardial infarction; I10 Essential (primary) hypertension; E78.2 Mixed hyperlipidemia
CPT/HCPCS: 74177; 80053; 81003; 83605; 83690; 85025; 96374; 99283; J1885; Q9967

== ENCOUNTER → 2020-06-12 07:27 | Outpatient (BNVA) | payer MEDICARE, MEDICAID, SELFPAY | PROVIDERS: PCP Nurse Practitioner Family; Visit Provider Nurse Practitioner Psychiatric/Mental Health | DX: F33.3 Major depressive disorder, recurrent, severe with psychotic symptoms (principal); F17.210 Nicotine dependence, cigarettes, uncomplicated; F10.21 Alcohol dependence, in remission | CPT/HCPCS: 99214 ==

== ENCOUNTER 2020-07-23 20:00 | Outpatient (CLI) | payer MEDICARE, MEDICAID, SELFPAY | END 2020-07-23 20:01 | disposition home or self-care (01) | LOC: SLEEP 07-24 08:37 | PROVIDERS: PCP Nurse Practitioner Family; Visit Provider Anesthesiology Pain Medicine | DX: R06.83 Snoring (principal); R53.83 Other fatigue; G47.10 Hypersomnia, unspecified | CPT/HCPCS: 95810 ==

== ENCOUNTER → 2020-07-24 07:33 | Outpatient (BNVA) | payer MEDICARE, MEDICAID, SELFPAY | PROVIDERS: PCP Nurse Practitioner Family; Visit Provider Nurse Practitioner Psychiatric/Mental Health | DX: F33.3 Major depressive disorder, recurrent, severe with psychotic symptoms (principal); F17.210 Nicotine dependence, cigarettes, uncomplicated; F10.21 Alcohol dependence, in remission | CPT/HCPCS: 99214 ==

== ENCOUNTER → 2020-08-21 07:39 | Outpatient (BNVA) | payer MEDICARE, MEDICAID, SELFPAY | PROVIDERS: PCP Nurse Practitioner Family; Visit Provider Nurse Practitioner Psychiatric/Mental Health | DX: F10.20 Alcohol dependence, uncomplicated (principal); F17.210 Nicotine dependence, cigarettes, uncomplicated; F33.3 Major depressive disorder, recurrent, severe with psychotic symptoms | CPT/HCPCS: 99214 ==

== ENCOUNTER → 2020-09-26 08:25 | Outpatient (BNVA) | payer MEDICARE, MEDICAID, SELFPAY | PROVIDERS: PCP Nurse Practitioner Family; Visit Provider Nurse Practitioner Psychiatric/Mental Health | DX: F10.20 Alcohol dependence, uncomplicated (principal); F33.3 Major depressive disorder, recurrent, severe with psychotic symptoms; F17.210 Nicotine dependence, cigarettes, uncomplicated | CPT/HCPCS: 99214 ==

== ENCOUNTER → 2020-10-11 07:35 | Outpatient (BNVA) | payer MEDICARE, MEDICAID, SELFPAY | PROVIDERS: PCP Nurse Practitioner Family; Visit Provider Nurse Practitioner Psychiatric/Mental Health | DX: F33.3 Major depressive disorder, recurrent, severe with psychotic symptoms (principal); F17.210 Nicotine dependence, cigarettes, uncomplicated; N52.9 Male erectile dysfunction, unspecified; N50.819 Testicular pain, unspecified; F10.20 Alcohol dependence, uncomplicated | CPT/HCPCS: 99214 ==

== ENCOUNTER → 2020-10-31 10:37 | Outpatient (BNVA) | payer MEDICARE, MEDICAID, SELFPAY | PROVIDERS: PCP Nurse Practitioner Family; Referring Provider Nurse Practitioner Psychiatric/Mental Health; Visit Provider Urology | DX: N50.819 Testicular pain, unspecified (principal); N52.9 Male erectile dysfunction, unspecified | CPT/HCPCS: 81003 ==

== ENCOUNTER → 2020-11-15 07:04 | Outpatient (BNVA) | payer MEDICARE, MEDICAID, SELFPAY | PROVIDERS: PCP Nurse Practitioner Family; Visit Provider Nurse Practitioner Psychiatric/Mental Health | DX: F33.3 Major depressive disorder, recurrent, severe with psychotic symptoms (principal); F10.20 Alcohol dependence, uncomplicated; F17.210 Nicotine dependence, cigarettes, uncomplicated; N52.9 Male erectile dysfunction, unspecified; N50.819 Testicular pain, unspecified | CPT/HCPCS: 99214 ==

== ENCOUNTER 2021-01-15 23:24 | Emergency (ER) | payer MEDICARE, MEDICAID, SELFPAY ==
--- NOTE | 2021-01-15 23:25 | XRR_ITS ---
PROCEDURE INFORMATION: Exam: XR Left Femur Exam date and time: 01/15/2021 11:25 PM Age: 55 years old Clinical indication: Injury or trauma; Blunt trauma; Injury details: Fall in bathroom. Pain in left hip and low back pain. ; Prior surgery; Surgery type: Lumbar TECHNIQUE: Imaging protocol: XR Left femur. Views: 2 views. COMPARISON: CT abdomen pelvis w con* [id number] 06/07/2020 1:25 AM FINDINGS: Bones/joints: Unremarkable. No acute fracture. Soft tissues: Unremarkable. XR/XR femur LT min 2V* [id number] IMPRESSION: No acute findings.
--- NOTE | 2021-01-15 23:25 | XRR_ITS ---
PROCEDURE INFORMATION: Exam: XR Pelvis Exam date and time: 01/15/2021 11:25 PM Age: 55 years old Clinical indication: Injury or trauma; Blunt trauma (contusions or hematomas); Pelvic region; Injury details: Fall in bathroom. Pain in left hip and low back pain. ; Additional info: Hip pain TECHNIQUE: Imaging protocol: XR pelvis. Views: 1 or 2 view. COMPARISON: CT abdomen pelvis w con* [id number] 06/07/2020 1:25 AM FINDINGS: Tubes, catheters and devices: Pedicle screws and posterior rods are seen at the L4-L5 level bilaterally. Disc space material is seen at L4-L5. Bones/joints: See Tubes, catheters and devices finding. Soft tissues: Unremarkable. XR/XR pelvis 1-2V* [id number] IMPRESSION: There are no acute osseous findings.
[2021-01-15 23:27] VITALS: BP 138/87; PULSE 84; RESP 14; TEMP 36.2; O2SAT 98; BMI 26.6
--- NOTE | 2021-01-15 23:49 | XRR_ITS ---
PROCEDURE INFORMATION: Exam: XR Lumbosacral Spine Exam date and time: 01/15/2021 11:49 PM Age: 55 years old Clinical indication: Injury or trauma; Blunt trauma (contusions or hematomas); Injury details: Fall in bathroom. Pain in left hip and low back pain. ; Prior surgery; Surgery type: Lumbar; Additional info: Evaluate FX TECHNIQUE: Imaging protocol: XR of the lumbosacral spine. Views: 2 or 3 views. COMPARISON: CR XR lumbar spine min 4V [id number] 04/23/2020 8:21 AM FINDINGS: Bones/joints: Status post PLIF L4-L5 with disc space material present. This appears stable compared with 04/23/2020. Soft tissues: Unremarkable. XR/XR lumbar spine 2-3V* [id number] IMPRESSION: There are no acute osseous findings.
--- NOTE | 2021-01-15 23:54 | ECG_ITS ---
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 Measurements Intervals [place] Rate: 80 P: 70 MN: 164 QRS: 93 QRSD: 94 T: 77 QT: 378 QTc: 436 Interpretive Statements SINUS RHYTHM BORDERLINE RIGHT AXIS DEVIATION [QRS AXIS > 90] WARNING: DATA QUALITY MAY AFFECT INTERPRETATION INTERPRETATION BASED ON A DEFAULT AGE OF 40 YEARS Compared to ECG 02/23/2020 11:00:35 No significant changes Electronically Signed On 01-17-2021 7:03:50 CDT by Shelly Borrero M.D. [email or web address]
--- NOTE | 2021-01-15 23:54 | ED_ITS ---
HPI - General Adult General: Chief complaint: Extremity Injury, Lower Stated complaint: FALL Time Seen by Provider: 01/15/21 23:25 History of Present Illness: HPI narrative: Patient is a 55-year-old male with a history of chronic back pains/p surgery who presents the emergency room after mechanical fall. Patient complains of left buttock pain with radiating paresthesias down the left leg. Patient says that he was turning around in the bathroom when he slipped and fell onto his left leg. Denies any head injuries, LOC, or other pain. Patient says that he is slow to get up and eventually called EMS. On arrival, patient denies any associated chest pain, shortness breath, palpitation, or other focal body injuries with the episode of fall. Onset: 2 hrs ago Duration:2 hrs Location:home Severity:moderate Review of Systems Narrative: Constitutional: No fever, no chills. HEENT: No vision changes CV: No chest pain, no palpitations PULM: no cough, no dyspnea. GI: No abdominal pain, no N/V/D. : No dysuria, +L glute pain, +no saddle anesthesia MSKEL: No muscle pain SKIN: No new rashes, no lesions. NEURO: No headache, no focal weakness. HEME: No visible bruises PSYCH: Normal mood BACK: +lumbar back pain PFSH ED PFSH: Medical History (Updated 01/16/21 @ 00:01 by ) Alcohol dependence Cervical disc disorder with myelopathy of mid-cervical region Chronic gastritis with bleeding Chronic idiopathic constipation Chronic migraine Depression Elevated hemoglobin A1c Erectile dysfunction History of [place] (myocardial infarction) Hypertension, benign Insomnia Instability of joint Iron deficiency anemia [facility] (current) use of opiate analgesic Major depressive disorder, recurrent, severe with psychotic symptoms Mixed hyperlipidemia Neuropathy, idiopathic Nicotine dependence, cigarettes, uncomplicated Pain management contract signed Polyneuropathy, peripheral sensorimotor axonal Post-operative state Psychiatric care Skin cancer Spondylolisthesis of cervical region Testicular pain Vitamin B12 deficiency Vitamin D deficiency Surgical History History of cholecystectomy History of elbow surgery History of heart artery stent History of spinal surgery 08/14/2019 Dr. Yoel Hernandez: C3-C4, C4-C5 ACDFF Hx of appendectomy Family History Mother Alcohol abuse Sister Alcohol abuse Brother Alcohol abuse Other Unknown family medical history Social History Smoking and tobacco status: current every day smoker cigarettes Packs smoked per day: 0.25 Years cigarettes smoked: 51 [ Other cigarette details: 1 pack every 2 and half days, ] Alcohol intake: current Alcohol type: beer Marital status: Life Partner Current occupational status: disabled History of recent travel: No Physical Exam Narrative: EXAM NARRATIVE: Head: Atraumatic Eyes: PERRL, conjunctiva without injection ENT: Mucous membrane moist NECK: Supple, ROM intact LUNGS: LCTAB, no crackles/rhonchi CV: RRR ABDOMEN: Soft, nontender in all quadrants EXTREMITY: Normal ROM, strenght 5/5 in the lower extremities SKIN: No rash or erythema NEURO: Awake and alert, no focal motor deficits PSYCH: Normal mood and affect BACK: +L glute tenderness to palpation, L4-L5 paraspinal tenderness L to palpation, no C/T/L/S stepoff or fluctuance Procedures Nerve Block Nerve Block 1: Time out performed: Yes Local Anesthetic: lidocaine 1% and with epi Amount of anesthesia used (mL): 5 Side: left Nerve Blocks: other (glute) Patient Tolerated Procedure: well Complications: none Additional Comments: Skin was chlorprepped x 3, sterile glove used. Kenalog mixed with 1% lidocaine w/ epi applied to areas of trigger point Course Vital Signs: Vital signs: Vital Signs Temperature 97.1 F L 01/15/21 23:27 Pulse Rate 72 01/16/21 01:23 Respiratory Rate 16 01/16/21 01:23 Blood Pressure 126/84 01/16/21 01:23 Pulse Oximetry 98 01/16/21 01:23 MDM - General Adult MDM Narrative: Medical decision making narrative: 55-year-old male presenting to the emergency room s/p fall with inability to ambulate due to severe puntsx. on exam, patient is focal tenderness palpation of the left leg. X-ray of pelvis, hip, lumbar back did not show any signs of acute fracture. Hardware was noted in the lumbar spine without any loosening or fractures. Performed at bedside lidocaine/Kenalog injection into the left gluteal area. Please refer to the procedure note. Patient reports significant improvement in symptoms of pain. Patient is now able to ambulate without any difficulty. Rx norflex, tylenol, lidocaine 5% PRN pain I have given patient follow up with our watch case polisher to be seen by our outpatient Sports Medicine and physical therapy. Patient aware of a call from our watch case polisher to schedule for appointment(s) and verbalizes understanding of the importance of following up. Disposition: Discharge. Patient counseled regarding diagnostic impression, treatment plan. Patient given ED strict return precautions to return for continuation, worsening, or development of new symptoms. Instructed to f/u w/ PCP regarding symptoms today. Patient verbalized understanding. Imaging Data^: Other Imaging: Radiologist's impression: [facility] [id number] [place], [place] [address]FRda ReportSigned Patient: Mg Cheatham #: [id number]: [id number]#:[id number]/Sex: 55 / MADM Date: 01/15/21Loc: ERRoom/Bed:Attending Dr: Ordering Provider/Ordering MD: Ketan Patton MD Date of Service: 01/15/21 Procedure(s): XR lumbar spine 2-3V* 53465 Accession Number(s): [id number] Report Number: [id number] PROCEDURE INFORMATION: Exam: XR Lumbosacral Spine Exam date and time: 01/15/2021 11:49 PM Age: 55 years old Clinical indication: Injury or trauma; Blunt trauma (contusions or hematomas); Injury details: Fall in bathroom. Pain in left hip and low back pain. ; Prior surgery; Surgery type: Lumbar; Additional info: Evaluate FX TECHNIQUE: Imaging protocol: XR of the lumbosacral spine. Views: 2 or 3 views. COMPARISON: CR XR lumbar spine min 4V [id number] 04/23/2020 8:21 AM FINDINGS: Bones/joints: Status post PLIF L4-L5 with disc space material present. This appears stable compared with 04/23/2020. Soft tissues: Unremarkable. XR/XR lumbar spine 2-3V* [id number] IMPRESSION: There are no acute osseous findings. Dictated By:Samuel Grey MDSigned By:Samuel Grey MDSigned Date/Time: 1 0111DD/ 0110 Mg Cheatham) 55 M [address], [place] [address]NDfp ReportSigned Patient: Mg Cheatham #: [id number]: [id number]#:[id number]/Sex: 55 / MADM Date: 01/15/21Loc: ERRoom/Bed:Attending Dr: Ordering Provider/Ordering MD: Ketan Patton MD Date of Service: 01/15/21 Procedure(s): XR pelvis 1-2V* 33401 Accession Number(s): [id number] Report Number: [id number] PROCEDURE INFORMATION: Exam: XR Pelvis Exam date and time: 01/15/2021 11:25 PM Age: 55 years old Clinical indication: Injury or trauma; Blunt trauma (contusions or hematomas); Pelvic region; Injury details: Fall in bathroom. Pain in left hip and low back pain. ; Additional info: Hip pain TECHNIQUE: Imaging protocol: XR pelvis. Views: 1 or 2 view. COMPARISON: CT abdomen pelvis w con* [id number] 06/07/2020 1:25 AM FINDINGS: Tubes, catheters and devices: Pedicle screws and posterior rods are seen at the L4-L5 level bilaterally. Disc space material is seen at L4-L5. Bones/joints: See Tubes, catheters and devices finding. Soft tissues: Unremarkable. XR/XR pelvis 1-2V* [id number] IMPRESSION: There are no acute osseous findings. Dictated By:Samuel Grey MDSigned By:Samuel Grey MDSigned Date/Time:01/16/21 0111DD/ 0109 [facility] [facility].[place], [place] [address]MOzy ReportSigned Patient: Mg Cheatham #: [id number]: [id number]#:[id number]/Sex: 55 / MADM Date: 01/15/21Loc: ERRoom/Bed:Attending Dr: Ordering Provider/Ordering MD: Ketan Patton MD Date of Service: 01/15/21 Procedure(s): XR femur LT min 2V* [id number] Accession Number(s): [id number] Report Number: [id number] PROCEDURE INFORMATION: Exam: XR Left Femur Exam date and time: 01/15/2021 11:25 PM Age: 55 years old Clinical indication: Injury or trauma; Blunt trauma; Injury details: Fall in bathroom. Pain in left hip and low back pain. ; Prior surgery; Surgery type: Lumbar TECHNIQUE: Imaging protocol: XR Left femur. Views: 2 views. COMPARISON: CT abdomen pelvis w con* [id number] 06/07/2020 1:25 AM FINDINGS: Bones/joints: Unremarkable. No acute fracture. Soft tissues: Unremarkable. XR/XR femur LT min 2V* [id number] IMPRESSION: No acute findings. Dictated By:Samuel Grey MDSigned By:Samuel Grey MDSigned Date/Time:01/16/212DD/ 0 Discharge Plan Discharge Patient Disposition: Home Clinical Impression: Fall, Back pain, Sciatica Condition: Stable Prescriptions: New orphenadrine citrate 100 mg tablet extended release 100 mg PO BID PRN (Reason: back pain) 10 Days Qty: 20 RF: 0 acetaminophen 500 mg tablet 500 mg PO Q6H PRN (Reason: pain) 5 Days Qty: 20 RF: 0 lidocaine 5 % adhesive patch,medicated 1 patch topical DAILY PRN (Reason: pain) 10 Days Qty: 10 RF: 0 No Action Amitiza 24 mcg capsule 24 mcg PO BID 30 Days Qty: 60 RF: 1 venlafaxine [Effexor XR] 37.5 mg capsule,extended release 24hr 37.5 mg PO QAM Qty: 30 RF: 3 Adacel(Tdap Adolesn/Adult)(PF) 2 Lf-(2.5-5-3-5 mcg)-5Lf/0.5 mL syringe 0.5 ml IM ONCE Qty: 0.5 RF: 0 sildenafil 100 mg tablet 100 mg PO DAILY PRN (Reason: sexual activity) Qty: 20 RF: 12 hydrocodone-acetaminophen 5-325 mg tablet 1 tab PO Q8H PRN (Reason: pain) 7 Days Qty: 21 RF: 0 lisinopril 10 mg tablet See Rx Instructions .ROUTE .COMPLEX Qty: 90 RF: 1 hydrochlorothiazide 25 mg tablet 25 mg PO DAILY 90 Days Qty: 90 RF: 1 Discharge Orders: Discharge ED (Routine); Ordered 01/16/21 Ordered By: Ketan Patton Referrals: [facility], [employer] SYSTEMS ADMINISTRATOR [Primary Care Provider] - Discharge Diet: Advance as tolerated Discharge Activity: Resume usual activity Patient Instructions: Back Pain (ED) Activity Restrictions/Additional Instructions: Our watch case polisher will have you follow-up with Sports medicine in the next few days. You would be expected to have a phone call with our watch case polisher who will put you on the schedule. Come back to the emergency room you have any worsening pain, fever/chills, nausea/vomiting, or any weakness in legs, any swelling or worsening pain, or any new or concerning complaints. Coding Level of Care Code ED [employer] Sales Representative for Kaylee Aguayo
[2021-01-16] MEDS: triamcinolone 40 mg/mL SDV IM (00:15)
[2021-01-16 01:23] VITALS: BP 126/84; PULSE 72; RESP 16; O2SAT 98
--- NOTE | 2021-01-16 09:19 | DCPLANNER ---
software project manager had message to schedule a follow up appointment for patient with ortho and physical therapy. software project manager called the ortho clinic, spoke with Purnima, gave clinic patients information. software project manager also told Purnima that the ED physician wants patient to have physical therapy, so when patient is seen by a provider if they feel patient needs physical therapy can the physician order PT for patient. software project manager was told that patients information would be printed and reviewed. Clinic will call patient with appointment information.
--- NOTE | 2021-01-23 12:30 | DCPLANNER ---
Addendum entered by Mary Andrade 05/09/21 15:11: Patient had a follow up appointment scheduled with ortho - patient did attend appointment. Original Note: Patient has a follow up appointment scheduled for Thursday, February 04, 2021 at 8:45 with [facility]. Clinic will call patient with appointment information.
== END 2021-01-16 01:20 | disposition home or self-care (01) ==
LOC: ER 01-16 00:59
PROVIDERS: Emergency Provider Emergency Medicine; PCP Nurse Practitioner Family
DX: M54.40 Lumbago with sciatica, unspecified side (principal); I25.2 Old myocardial infarction; I10 Essential (primary) hypertension; E78.2 Mixed hyperlipidemia; F17.210 Nicotine dependence, cigarettes, uncomplicated
CPT/HCPCS: 72100; 72170; 73552; 93005; 96372; 99283; J3301

== ENCOUNTER → 2021-01-21 10:58 | Outpatient (BNVA) | payer MEDICARE, MEDICAID, SELFPAY | PROVIDERS: PCP Nurse Practitioner Family; Visit Provider Nurse Practitioner Psychiatric/Mental Health | DX: F33.3 Major depressive disorder, recurrent, severe with psychotic symptoms (principal) | CPT/HCPCS: 80061; 83036 ==

== ENCOUNTER → 2021-05-15 09:02 | Outpatient (BNVA) | payer MEDICARE, MEDICAID, SELFPAY ==
[2021-01-28 13:10] VITALS: BP 136/81; BMI 26.3
== END ==
PROVIDERS: PCP Nurse Practitioner Family; Visit Provider Physician Assistant
DX: M54.16 Radiculopathy, lumbar region (principal); Z98.1 Arthrodesis status
CPT/HCPCS: 72100

== ENCOUNTER → 2021-06-02 08:22 | Outpatient (BNVA) | payer MEDICARE, MEDICAID, SELFPAY ==
[2021-01-28 13:10] VITALS: BP 136/81; BMI 26.3
== END ==
PROVIDERS: PCP Nurse Practitioner Family; Visit Provider Nurse Practitioner Psychiatric/Mental Health
DX: F33.3 Major depressive disorder, recurrent, severe with psychotic symptoms (principal); F17.210 Nicotine dependence, cigarettes, uncomplicated; F10.20 Alcohol dependence, uncomplicated
CPT/HCPCS: 99214

== ENCOUNTER → 2021-07-14 07:43 | Outpatient (BNVA) | payer MEDICARE, MEDICAID, SELFPAY ==
[2021-01-28 13:10] VITALS: BP 136/81; BMI 26.3
== END ==
PROVIDERS: PCP Nurse Practitioner Family; Visit Provider Nurse Practitioner Psychiatric/Mental Health
DX: F33.3 Major depressive disorder, recurrent, severe with psychotic symptoms (principal); F10.20 Alcohol dependence, uncomplicated; F17.210 Nicotine dependence, cigarettes, uncomplicated
CPT/HCPCS: 99214

== ENCOUNTER → 2021-08-06 10:36 | Outpatient (BNVA) | payer MEDICARE, MEDICAID, SELFPAY ==
[2021-01-28 13:10] VITALS: BP 136/81; BMI 26.3
== END ==
PROVIDERS: PCP Nurse Practitioner Family; Visit Provider Nurse Practitioner Psychiatric/Mental Health
DX: F33.3 Major depressive disorder, recurrent, severe with psychotic symptoms (principal); F10.20 Alcohol dependence, uncomplicated; F17.210 Nicotine dependence, cigarettes, uncomplicated
CPT/HCPCS: 99214

== ENCOUNTER 2021-08-13 13:34 | Outpatient (CLI) | payer MEDICARE, MEDICAID, SELFPAY ==
[2021-01-28 13:10] VITALS: BP 136/81; BMI 26.3
--- NOTE | 2021-08-13 14:00 | CT_ITS ---
WS: [id number] CT LUMBAR SPINE TECHNIQUE: Noncontrast CT of the lumbar spine with coronal and sagittal reformatted images. CLINICAL INFORMATION: Z98.1 - Arthrodesis status COMPARISON: None. DLP: 1364.[address] scans at [facility] use at least one of these dose optimization techniques: automated e xposure control; mA and/or kV adjustment per patient size (includes targeted exams where dose is matc hed to clinical indication); or iterative reconstruction. FINDINGS: Mild lumbar curve. No acute compression. Prior postoperative changes pedicle screw fixation L4-L5 wit h interbody fusion graft. Immature interbody fusion graft. No evidence of bony bridging beyond the co nfines of the graft. LEFT L4 pedicle screw extends along the medial aspect of the pedicle and LEFT subarticular recess. Pe dicle screws are otherwise in good position. Interconnecting rods appear intact. Hardware is new sinc e the prior MRI November 03, 2019 Adrenal glands are normal. Small LEFT renal cyst. Lung bases are well aerated. Moderate aortic calcif ication with slight ectasia L1-L2: Normal. L2-L3: Mild annular bulging. Mild facet arthropathy. Spinal canal and foramen are patent. L3-L4: Mild disc bulging with slight effacement of ventral thecal sac. Moderate central canal stenosi s with facet arthropathy and ligamentum flavum hypertrophy. Mild bilateral foraminal narrowing. Narro wing of the subarticular recess bilaterally. L4-L5: Pedicle screw fixation with laminectomy defects. LEFT pericentral protruding osteophyte along the dorsal margin of the graft impinges the LEFT subarticular recess. Recommend correlation LEFT L5 n erve root symptoms. LEFT L4 nerve root appears to exit normally. RIGHT foramen and spinal canal are p atent. L5-S1: Pedicle screw fixation. Mild annular bulging eccentric to the LEFT. Slight effacement of ventr al thecal sac. Slight contact of the S1 nerve roots. Foramen are patent. Mild facet arthropathy. Visualized pelvic bony structures: Normal. Paravertebral soft tissues: Normal. CT/CT lumbar spine wo con* [id number] IMPRESSION: 1. Pedicle screw fixation L4-L5 is new since the prior MRI. Immature interbody fusion graft. No evidence of bony bridging beyond the confines of the graft. 2. LEFT L4 pedicle screw traverses the medial aspect of the pedicle and adjace nt subarticular recess. Remaining Pedicle screws otherwise transpedicular posit ion. 3. Laminectomy defects L4-L5. 4. Bony osteophyte dorsal L4-L5 disc space along the posterior graft margin na rrows the LEFT subarticular recess. Correlation with LEFT L5 nerve root symptom s. LEFT L4 nerve root appears to exit normally with mild LEFT proximal foramina l narrowing. 5. Moderate central canal stenosis L3-L4 due to disc bulging with facet arthro azeem and ligamentum flavum hypertrophy. This appears progressed compared to th e prior MRI. Images are degraded at this level due to beam hardening artifact f rom hardware. 6. Mild annular bulging L5-S1 with slight contact of the traversing S1 nerve r oots.
== END 2021-08-13 13:35 | disposition home or self-care (01) ==
LOC: RAD 13:35
PROVIDERS: PCP Nurse Practitioner Family; Visit Provider Physician Assistant
DX: M54.16 Radiculopathy, lumbar region (principal); Z98.1 Arthrodesis status
CPT/HCPCS: 72131

== ENCOUNTER → 2021-09-17 07:22 | Outpatient (BNVA) | payer MEDICARE, MEDICAID, SELFPAY ==
[2021-01-28 13:10] VITALS: BP 136/81; BMI 26.3
== END ==
PROVIDERS: PCP Nurse Practitioner Family; Visit Provider Nurse Practitioner Psychiatric/Mental Health
DX: F33.3 Major depressive disorder, recurrent, severe with psychotic symptoms (principal); F10.20 Alcohol dependence, uncomplicated; F17.210 Nicotine dependence, cigarettes, uncomplicated
CPT/HCPCS: 99214

== ENCOUNTER → 2021-09-23 09:49 | Outpatient (BNVA) | payer MEDICARE, MEDICAID, SELFPAY ==
[2021-01-28 13:10] VITALS: BP 136/81; BMI 26.3
== END ==
PROVIDERS: PCP Nurse Practitioner Family; Visit Provider Orthopaedic Surgery
DX: M54.9 Dorsalgia, unspecified (principal); M85.88 Other specified disorders of bone density and structure, other site
CPT/HCPCS: 72100; 99214

== ENCOUNTER 2021-10-13 06:00 | Day surgery (SDC) | payer MEDICARE, MEDICAID, SELFPAY ==
[2021-01-28 13:10] VITALS: BP 136/81; BMI 26.3
[2021-10-10 10:38] VITALS: BMI 26.3
[2021-10-10 11:31] LABS: Anion Gap 14.2 (5-19); Blood Urea Nitrogen 10 mg/dL (6-20); Calcium 9.5 mg/dL (8.5-10.5); Carbon Dioxide 25 mmol/L (22-29); Chloride 101 mmol/L (98-107); Glomerular Filtration Rate 115.8 mL/min (90-130); Glucose 99 mg/dL (65-115); Osmolality Calculated 281 mOsm/kg (285-295); Potassium 4.2 mmol/L (3.5-5.1); Sodium 136 mmol/L (136-145)
--- NOTE | 2021-10-10 11:44 | ANES.PREANE2 ---
Pre-Anesthetic Assessment Height/Weight: Height 1.73 m Weight 78.471 kg Preop Diagnosis: L4/5 spondylolisthesis Operation Date: 10/13/21 07:00 Proposed Procedures p Hardware Removal Lumbar L4/5 91381 M54.9(Left) - Akin Ram DO Familial anesthetic complications: none Was Beta Nenita taken within 24 hours: N/A Was Clonidine taken within 24 hours: N/A Social Alcohol and Tobacco Exam alert, oriented x 3 and regular rate & rhythm diminished breath sounds b/l Airway Submandibular: within normal limits Cervical ROM: within normal limits Mallampati: Class I Dentition: false Pulmonary None reported CV/HEM Coronary Artery Disease (hx of 2 CA stents ) and Myocardial Infarction METS > 4 None reported Hepatic None reported GI Gastroesophageal Reflux Disease Gastritis Metabolic Elevated HgA1c Musc/skel Lower Back Pain and Osteoarthritis/DJD Cervical myelopathy, s/p fusion Breast cancer hx Spinal stenosis Neuropsych Depression, Headache and Neuropathy (idiopathic neuropathy, B12 deficiency ) Anesthetic Plan ASA status: 3 (56 year old male w/ hx of smoking, ETOH dependence, CAD s/p cardiac stents, UT , neuropathy, depression ) Anesthesia: Anesthesia Evaluation and General Other: We discussed risk and benefits of general anesthesia including PONV, sore throat (sometimes severe), corneal abrasion, positioning and peripheral nerve injuries, life threatening allergic reaction, post operative ICU admission requiring prolonged intubation, aspiration, stroke, heart attack, , and rare incidences of recall. Patient consents to proceed with general anesthesia. Risk of > 500 ml blood loss (7ml/kg in children): No Medications/Allergies Home Medications Medication Instructions Recorded Confirmed Last Taken Type hydrocodone 5 mg-acetaminophen 325 1 tab PO Q8H PRN 7 Days #21 tab 03/26/20 10/10/21 Unknown Rx mg tablet hydrochlorothiazide 25 mg tablet 25 mg PO DAILY 90 Days #90 tab 04/16/21 10/10/21 Unknown Rx lisinopril 10 mg tablet See Rx Instructions .ROUTE 06/02/21 10/10/21 Unknown Rx .COMPLEX #90 tab venlafaxine 75 mg capsule,extended 75 mg PO QAM #30 cap 07/14/21 10/10/21 Unknown Rx release 24 hr (Effexor XR) ketoconazole 2 % shampoo 1 applic TOPICAL .2x weekly #120 ml 09/05/21 10/10/21 Unknown Rx quetiapine 50 mg tablet (Seroquel) 50 mg PO BID PRN #60 tab 09/17/21 10/10/21 Unknown Rx cephalexin 500 mg capsule 500 mg PO TID #21 cap 10/08/21 10/10/21 10/10/21 Rx mupirocin 2 % topical ointment 1 applic TOPICAL BID #22 g 10/08/21 10/10/21 Unknown Rx Allergies Allergy/AdvReac Type Severity Reaction Status Date / Time morphine Allergy Unknown swelling Verified 10/08/21 08:26 [facility] Anesthesia Medical History Alcohol dependence Cervical disc disorder with myelopathy of mid-cervical region Chronic gastritis with bleeding Chronic idiopathic constipation Chronic migraine Depression Elevated hemoglobin A1c Erectile dysfunction History of breast cancer in male History of [place] (myocardial infarction) Hx of breast cancer Hypertension, benign Insomnia Instability of joint 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 Lumbar back pain with radiculopathy affecting lower extremity Major depressive disorder, recurrent, severe with psychotic symptoms Mixed hyperlipidemia Mixed hyperlipidemia Neuropathy, idiopathic Nicotine dependence, cigarettes, uncomplicated Pain management contract signed Polyneuropathy, peripheral sensorimotor axonal Post-operative state Psychiatric care Skin cancer Spondylolisthesis of cervical region Testicular pain Vitamin B12 deficiency Vitamin D deficiency Surgical History History of cholecystectomy History of elbow surgery History of heart artery stent History of spinal surgery 08/14/2019 Dr. Yoel Hernandez: C3-C4, C4-C5 ACDFF Hx of appendectomy Family History Mother Alcohol abuse Sister Alcohol abuse Brother Alcohol abuse Other Unknown family medical history Social History Smoking and tobacco status: current every day smoker cigarettes Packs smoked per day: 0.25 Years cigarettes smoked: 51 [ Other cigarette details: 1 pack every 2 and half days, ] Alcohol intake: current Alcohol type: beer and hard liquor Adopted: No Caregiver/support person: No Lives independently: Yes Household members: spouse Housing: Other Details: Lives in a tent for about 5-6 years Marital status: Marital status details: October 26, 2019 Number of children: 2 Number of grandchildren: 3 Highest education level completed: High School Graduate service: No Current occupational status: disabled Current occupational exposures/hazards: No Pets and animals: Yes (wildlife) Pets & animals: dog(s) History of recent travel: Yes (for daughters wedding) Details: [place] Out of state: Yes Out of country: No Leisure activites: music, hunting, fishing and other Leisure activities details: nature Sexually active: Yes Current gender identity: Male [place]/Confucianist: None Special [place] needs: No Agree to transfusion: Yes Financial difficulty paying for basics: Not Very Hard Data Anesthesia : 10/10/21 10:50 BMP 10/10/21 10:50 Sodium 136 Potassium 4.2 Chloride 101 Carbon Dioxide 25 BUN 10 Creatinine 0.7 Glucose 99 Calcium 9.5 Cardiac Studies: No Data to Display
== END 2021-10-13 06:01 | disposition home or self-care (01) ==
LOC: OR 01-26 20:48
PROVIDERS: Anesthesiology; PCP Nurse Practitioner; Visit Provider Orthopaedic Surgery
DX: Z01.818 Encounter for other preprocedural examination (principal)
CPT/HCPCS: 80048

== ENCOUNTER 2021-11-17 06:39 | Inpatient (IN) | payer MEDICARE, MEDICAID, SELFPAY ==
[2021-01-28 13:10] VITALS: BP 136/81; BMI 26.3
[2021-11-14 12:24] VITALS: BMI 26.3
[2021-11-17] VITALS (12 sets, daily range): BP systolic 99–142; BP diastolic 58–89; PULSE 70–100; RESP 16–20; TEMP 36.1–37; O2SAT 92–99
--- NOTE | 2021-11-17 06:33 | ANES.PREANE2 ---
Pre-Anesthetic Assessment Height/Weight: Height 1.73 m Weight 78.471 kg Temp Pulse Resp BP Pulse Ox O2 Del Method 98.6 F 70 16 142/89 99 11/17/21 06:15 11/17/21 06:15 11/17/21 06:15 11/17/21 06:15 11/17/21 06:15 11/17/21 06:15 Preop Diagnosis: painful hardware Operation Date: 11/17/21 07:00 Proposed Procedures p Hardware Removal Lumbar(Not Applicable) - Akin Ram, DO Familial anesthetic complications: none Was Beta Nenita taken within 24 hours: N/A Was Clonidine taken within 24 hours: N/A Last intake: Intake Last Liquid Date 11/16/21 Last Liquid Time 15:00 Last Solid Date 11/16/21 Last Solid Time 15:00 Social Alcohol and Tobacco Exam alert, oriented x 3, clear to auscultation bilaterally and regular rate & rhythm Airway Submandibular: within normal limits Cervical ROM: within normal limits Mallampati: Class I Dentition: false Pulmonary None reported CV/HEM Coronary Artery Disease (2 CA stents ) and Myocardial Infarction METS > 4 None reported Hepatic None reported GI Gastroesophageal Reflux Disease Gastritis Metabolic None reported Musc/skel Lower Back Pain Spinal stenosis, cervical myelopathy Neuropsych Depression, Headache and Neuropathy Anesthetic Plan ASA status: 3 (56 year old male w/ hx of smoking, ETOH dependence, CAD s/p cardiac stents, AR , neuropathy, depression ) Anesthesia: Anesthesia Evaluation and General Other: I discussed with the patient risks, goals, and benefits of MAC and general anesthesia. We discussed spectrum of MAC anesthesia including conversion to general as well as possibility of recall of intraoperative stimuli including discomfort/pain. Patient agrees to proceed with MAC. Risk of > 500 ml blood loss (7ml/kg in children): No Medications/Allergies Home Medications Medication Instructions Recorded Confirmed Last Taken Type hydrocodone 5 mg-acetaminophen 325 1 tab PO Q8H PRN pain 7 days #21 03/26/20 11/17/21 11/16/21 Rx mg tablet tabs hydrochlorothiazide 25 mg tablet 25 mg PO DAILY 90 days #90 tabs 04/16/21 11/17/21 11/16/21 Rx lisinopril 10 mg tablet See Rx Instructions .Route 06/02/21 11/17/21 11/16/21 Rx .COMPLEX #90 tabs ketoconazole 2 % shampoo 1 applic topical .2x weekly #120 mL 09/05/21 11/17/21 Unknown Rx quetiapine 50 mg tablet (Seroquel) 50 mg PO BID PRN 09/17/21 11/17/21 Unknown Rx anxiety/agitation/sleep #60 tabs mupirocin 2 % topical ointment 1 applic topical BID #22 grams 10/08/21 11/17/21 11/16/21 Rx clonidine HCl 0.1 mg tablet 0.1 mg PO BID PRN alcohol 11/07/21 11/17/21 Unknown Rx withdrawal #60 tabs venlafaxine 75 mg capsule,extended 75 mg PO QAM #30 caps 11/07/21 11/17/21 11/16/21 Rx release 24 hr (Effexor XR) Allergies Allergy/AdvReac Type Severity Reaction Status Date / Time morphine Allergy Unknown swelling Verified 11/17/21 06:09 [facility] Anesthesia Medical History Alcohol dependence Cervical disc disorder with myelopathy of mid-cervical region Chronic gastritis with bleeding Chronic idiopathic constipation Chronic migraine Depression Elevated hemoglobin A1c Erectile dysfunction History of breast cancer in male History of AR (myocardial infarction) Hx of breast cancer Hypertension, benign Insomnia Instability of joint 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 Lumbar back pain with radiculopathy affecting lower extremity Major depressive disorder, recurrent, severe with psychotic symptoms Mixed hyperlipidemia Mixed hyperlipidemia Neuropathy, idiopathic Nicotine dependence, cigarettes, uncomplicated Pain management contract signed Polyneuropathy, peripheral sensorimotor axonal Post-operative state Psychiatric care Skin cancer Spondylolisthesis of cervical region Testicular pain Vitamin B12 deficiency Vitamin D deficiency Surgical History History of cholecystectomy History of elbow surgery History of heart artery stent History of spinal surgery 08/14/2019 Dr. Yoel Hernandez: C3-C4, C4-C5 ACDFF Hx of appendectomy Family History Mother Alcohol abuse Sister Alcohol abuse Brother Alcohol abuse Other Unknown family medical history Social History Smoking and tobacco status: current every day smoker cigarettes Packs smoked per day: 0.25 Years cigarettes smoked: 51 [ Other cigarette details: 1 pack every 2 and half days, ] Alcohol intake: current Alcohol type: beer and hard liquor Adopted: No Caregiver/support person: No Lives independently: Yes Household members: spouse Housing: Other Details: Lives in a tent for about 5-6 years Marital status: Marital status details: October 26, 2019 Number of children: 2 Number of grandchildren: 3 Highest education level completed: High School Graduate service: No Current occupational status: disabled Current occupational exposures/hazards: No Pets and animals: Yes (wildlife) Pets & animals: dog(s) History of recent travel: Yes (for daughters wedding) Details: [place] Out of state: Yes Out of country: No Leisure activites: music, hunting, fishing and other Leisure activities details: nature Sexually active: Yes Current gender identity: Male [place]/Oriental Orthodox: None Special [place] needs: No Agree to transfusion: Yes Financial difficulty paying for basics: Not Very Hard Data Anesthesia Cardiac Studies: No Data to Display
--- NOTE | 2021-11-17 06:41 | PM.HP ---
Providers/Chief Complaint Chief Complaint: hardware removal lumbar 08343 m54.9 History of Present Illness Mg Cheatham is a 56 year old male He has a history of previous PLIF L4/5 DOS:02/29/20. He is here today to go over recent CT scan results and further treatment plan. He rates his pain 8/10 at todays visit. States his pain is located in his lower back that radiates into his left leg. He complains of numbness and tingling in both legs, mostly his left. He states he has a recent fall this morning, causing him more back pain. He complains of a knot on his back. Review of Systems Const: Denies: fever(s) or chills Eyes: Denies: change in vision ENMT: Denies: throat pain Card: Denies: chest pain Resp: Denies: dyspnea or productive cough GI: Denies: abdominal pain Musc: Denies: joint redness Skin/Breast: Reports: other (as noted in HPI) Medications/Allergies Home Medications Medication Instructions Recorded Confirmed Last Taken Type hydrocodone 5 mg-acetaminophen 325 1 tab PO Q8H PRN pain 7 days #21 03/26/20 11/17/21 11/16/21 Rx mg tablet tabs hydrochlorothiazide 25 mg tablet 25 mg PO DAILY 90 days #90 tabs 04/16/21 11/17/21 11/16/21 Rx lisinopril 10 mg tablet See Rx Instructions .Route 06/02/21 11/17/21 11/16/21 Rx .COMPLEX #90 tabs ketoconazole 2 % shampoo 1 applic topical .2x weekly #120 mL 09/05/21 11/17/21 Unknown Rx quetiapine 50 mg tablet (Seroquel) 50 mg PO BID PRN 09/17/21 11/17/21 Unknown Rx anxiety/agitation/sleep #60 tabs mupirocin 2 % topical ointment 1 applic topical BID #22 grams 10/08/21 11/17/21 11/16/21 Rx clonidine HCl 0.1 mg tablet 0.1 mg PO BID PRN alcohol 11/07/21 11/17/21 Unknown Rx withdrawal #60 tabs venlafaxine 75 mg capsule,extended 75 mg PO QAM #30 caps 11/07/21 11/17/21 11/16/21 Rx release 24 hr (Effexor XR) Allergies Allergy/AdvReac Type Severity Reaction Status Date / Time morphine Allergy Unknown swelling Verified 11/17/21 06:09 PFSH Acute PFSH: Medical History Alcohol dependence Cervical disc disorder with myelopathy of mid-cervical region Chronic gastritis with bleeding Chronic idiopathic constipation Chronic migraine Depression Elevated hemoglobin A1c Erectile dysfunction History of breast cancer in male History of ND (myocardial infarction) Hx of breast cancer Hypertension, benign Insomnia Instability of joint 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 Lumbar back pain with radiculopathy affecting lower extremity Major depressive disorder, recurrent, severe with psychotic symptoms Mixed hyperlipidemia Mixed hyperlipidemia Neuropathy, idiopathic Nicotine dependence, cigarettes, uncomplicated Pain management contract signed Polyneuropathy, peripheral sensorimotor axonal Post-operative state Psychiatric care Skin cancer Spondylolisthesis of cervical region Testicular pain Vitamin B12 deficiency Vitamin D deficiency Surgical History History of cholecystectomy History of elbow surgery History of heart artery stent History of spinal surgery 08/14/2019 Dr. Yoel Hernandez: C3-C4, C4-C5 ACDFF Hx of appendectomy Family History Mother Alcohol abuse Sister Alcohol abuse Brother Alcohol abuse Other Unknown family medical history Social History Smoking and tobacco status: current every day smoker cigarettes Packs smoked per day: 0.25 Years cigarettes smoked: 51 [ Other cigarette details: 1 pack every 2 and half days, ] Alcohol intake: current Alcohol type: beer and hard liquor Adopted: No Caregiver/support person: No Lives independently: Yes Household members: spouse Housing: Other Details: Lives in a tent for about 5-6 years Marital status: Marital status details: October 26, 2019 Number of children: 2 Number of grandchildren: 3 Highest education level completed: High School Graduate service: No Current occupational status: disabled Current occupational exposures/hazards: No Pets and animals: Yes (wildlife) Pets & animals: dog(s) History of recent travel: Yes (for daughters wedding) Details: [place] Out of state: Yes Out of country: No Leisure activites: music, hunting, fishing and other Leisure activities details: nature Sexually active: Yes Current gender identity: Male [place]/Congregational: None Special [place] needs: No Agree to transfusion: Yes Financial difficulty paying for basics: Not Very Hard Vitals/I&O/Wt Last Vital Signs Temp 98.6 F 11/17/21 06:15 Pulse 70 11/17/21 06:15 Resp 16 11/17/21 06:15 BP 142/89 11/17/21 06:15 Pulse Ox 99 11/17/21 06:15 O2 Del Method 11/17/21 06:15 Physical Exam Narrative: CONSTITUTIONAL: The patient is a normal appearing [] in no apparent distress. GENERAL: Patient in no acute distress. CARDIAC: Regular rate and rhythm. CHEST: Normal inspiratory effort, normal respiratory rate. ABDOMEN: Soft and nontender. SKIN: Clear, warm and intact. NEURO?PSYCH: The patient is alert and oriented to person, place and time. Sensorv /SILT Motor StrengthShoulder abduction C5 5/5Wrist extension C6 5/5Elbow extension C7 5/5Hand Electric Brain Wave Equipment Mechanic C8 5/5Finger abduction T15/5 Radial/ Ulnar/ Median n intact LowerSensory (SILT)Motor StrengthHin flexion L2/3Ant/inner thigh 5/5Hip adduction L2/3 5/5Knee extension L4 Lat thigh, 5/5Toe dorsiflexion L5 5/5Ankle dorsiflexion L5/ L95Exfuupu flexion S1 5/5 DTRBleeps 2+Triceps 2+Brachioradialis 2+Patellar 2+Achilles 2+ MUSCULOSKELETAL: [] UPPEREXTREMITIES: The patient had full active ROM in fingers, wrist, elbow, and shoulder. The patient demonstrated ability to fully flex/extend/abduct/adduct fingers, make ok sign, cross 2nd/3rd digits, extend 1st digit fully.. Radial pulse 2+, CR<2 seconds. LOWER EXTREMITIES: Pt has full, active ROM of toes, ankle, knee, and hip. Dorsalis pedis/posterior tibialis pulses 2+, CR<2 seconds. SPINE: Skin warm, dry, intact. A&P Assessment and plan (1) Lumbar back pain with radiculopathy affecting lower extremity: removal of hardware decompression Status: Acute Attestations Medical Necessity Statement*: failed conservtive tx Coding Level of Care Code Acute Fishing Rod Trimmer for Chg Fwd Diagnoses Lumbar back pain with radiculopathy affecting lower extremity M54.16
[2021-11-17] MEDS: sodium chloride 0.9% 1,000 ML 30 ML IV (06:48)
[2021-11-17] MEDS: ceFAZolin 2,000 MG in sodium chloride 0.9% (plus) 50 ML 100 MG IV (06:59)
[2021-11-17] MEDS: vancomycin 1,000 MG SDV 1000 MG XX (08:18)
--- NOTE | 2021-11-17 08:54 | P.OP_ITS ---
Operative Report Date of procedure: November 17, 2021 Pre-op diagnosis: Preop Diagnosis painful hardware Post-op diagnosis: same Procedure done: 1. Removal of deep spine hardware 2. revision L4/5 laminectomy with partial facetectomy Surgeon: Akin Ram Labor Specialist: Blair Chavarria Labor Specialist: The surgical garment assembly supervisor, Blair Chavarria, PAUL was needed for his expertise under the microscope. He was important and necessary throughout the procedure to complete in a safe and timely manner. He assisted with patient positioning prepping and draping tissue retraction suctioning of the operative field protection of the dural sac and tissue closure Estimated blood loss (mL): 20 Procedure: 1. Removal of deep spine hardware 2. revision L4/5 laminectomy with partial facetectomy Patient is brought to the operative suite placed in the prone position after undergoing anesthesia. All areas impingement well-padded patient is prepped and draped in sterile fashion. Skin incision made using previous skin incision. Subperiosteal dissection was made down to the screws of L4-5. The screws were identified. The caps removed followed by the tere. Screws were then backed out. Microscope was then brought in. Bur was used to find the edges of where the bone was. High-speed drill was used to drill down the lamina of L4 and the previous laminectomy site. As well as take down more of the medial aspect of facet joint of L4-5. The curvature was then used to formulated between the dura and the scar tissue. In the bone. And then a #3 Kerrison was used to break down the bone of the L4 lamina as well as the superior inferior aspect of the facet joint the L4 nerve was identified and it was traced out the L4-5 foramen Kerrison rongeur was used to open up the foramen further. This point was clearly we open. Attention was then brought to traced the L5 nerve. The #3 Kerrison was used to take down the medial aspect of facet joint tracing the L5 nerve around the L5 pedicle once these nerves were completely freed up then a large curved curette was used to fill out the foramen and out around the L5 nerve felt to be adequately compressed. Wounds were irrigated and closed with 0 Vicryl 2-0 Vicryl Monocryl and Steri-Strips in a layered fashion. Sterile dressings applied patient was transferred to the PACU in stable condition.
[2021-11-17] MEDS: fentaNYL 50 mcg/mL INJ 2mL IVP (09:00)
[2021-11-17] MEDS: ondansetron 2 mg/ML SDV 2 mL 4 MG IVP (09:12)
[2021-11-17] MEDS: HYDROcodone-acetaminophen 5-325 mg Tablet 2 TAB PO (09:59)
--- NOTE | 2021-11-17 12:33 | ANE.PACU2 ---
Inpatient post-anesthesia follow up: Airway intact: Yes Vital signs: Temperature 97 F Pulse Rate 72 Respiratory Rate 16 Blood Pressure 112/68 Pulse Oximetry 97 Oxygen Delivery Me thod Room Air Oxygen Flow Rate 2 Fraction of Inspir ed Oxygen Hydration adequate: Yes Nausea and vomiting: No Pain level: 1 Mental status: Baseline
== END 2021-11-17 10:30 | disposition home or self-care (01) | DRG 517 ==
LOC: OR 09:46 → MEDSURG 12-11 10:50
PROVIDERS: Admitting Provider Orthopaedic Surgery; Visit Provider Orthopaedic Surgery
PROC: 0SP004Z Removal of Internal Fixation Device from Lumbar Vertebral Joint, Open Approach (ICD-10-PCS; CPT 22850; principal; 2021-11-17 07:00)
DX: T84.84XA Pain due to internal orthopedic prosthetic devices, implants and grafts, initial encounter (principal); Y79.3 Surgical instruments, materials and orthopedic devices (including sutures) associated with adverse incidents; M54.16 Radiculopathy, lumbar region; F17.210 Nicotine dependence, cigarettes, uncomplicated
CPT/HCPCS: 22850; 63047; 51702; J0330; J1100; J2370; J2405; J2704; J2710; J3010; J3370; J3490; J7030

== ENCOUNTER → 2021-12-09 08:44 | Outpatient (BNVA) | payer MEDICARE, MEDICAID, SELFPAY ==
[2021-01-28 13:10] VITALS: BP 136/81; BMI 26.3
== END ==
PROVIDERS: PCP Nurse Practitioner Family; Visit Provider Orthopaedic Surgery
DX: M54.9 Dorsalgia, unspecified (principal); Z09 Encounter for follow-up examination after completed treatment for conditions other than malignant neoplasm
CPT/HCPCS: 99024

== ENCOUNTER 2022-01-13 19:59 | Emergency (ER) | payer MEDICARE, MEDICAID, SELFPAY ==
[2021-01-28 13:10] VITALS: BP 136/81; BMI 26.3
--- NOTE | 2022-01-13 20:01 | ECG_ITS ---
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 Measurements Intervals [place] Rate: 82 P: 67 FL: 169 QRS: 88 QRSD: 69 T: 78 QT: 375 QTc: 440 Interpretive Statements SINUS RHYTHM Compared to ECG 01/15/2021 23:33:57 No significant changes Electronically Signed On 01-14-2022 6:01:02 CDT by Shelly Borrero M.D. [id number]
--- NOTE | 2022-01-13 20:01 | XRR_ITS ---
PROCEDURE INFORMATION: Exam: XR Chest Exam date and time: 01/13/2022 8:26 PM Age: 56 years old Clinical indication: Chest wall pain; Patient HX: AMS; Additional info: Cp TECHNIQUE: Imaging protocol: Radiologic exam of the chest. Views: 1 view. COMPARISON: CR XR ribs RT mn 3V w CXR1V [id number] 08/20/2017 10:28 AM FINDINGS: Lungs: Unremarkable. No consolidation. Pleural spaces: Unremarkable. No pleural effusion. No pneumothorax. Heart/Mediastinum: Unremarkable. No cardiomegaly. Bones/joints: Unremarkable. XR/XR chest 1V portable [id number] IMPRESSION: No acute findings.
[2022-01-13 20:03] VITALS: BP 143/92; PULSE 86; RESP 17; TEMP 36.6; O2SAT 99; BMI 26.9
--- NOTE | 2022-01-13 20:08 | CTR_ITS ---
PROCEDURE INFORMATION: Exam: CT Cervical Spine Without Contrast Exam date and time: 01/13/2022 8:16 PM Age: 56 years old Clinical indication: Injury or trauma; Blunt trauma; Prior surgery; Surgery type: Cervical fusion; Patient HX: C/O head and neck pain post fall today. C collar in place. ; Additional info: Cp TECHNIQUE: Imaging protocol: Computed tomography of the cervical spine without contrast. Radiation optimization: All CT scans at this facility use at least one of these dose optimization techniques: automated exposure control; mA and/or kV adjustment per patient size (includes targeted exams where dose is matched to clinical indication); or iterative reconstruction. COMPARISON: CT cervical spin wo con* [id number] 10/13/2019 3:14 PM RADIATION DOSE METRICS: Total DLP (mGy-cm): 148.6 FINDINGS: Bones/joints: There has been an anterior fusion of C3 through C5 which appears intact. Intervertebral strut material appears well incorporated. Normal alignment. No acute fractures. Lungs: Lung apices are normal. Soft tissues: Unremarkable. CT/CT cervical spin wo con* [id number] IMPRESSION: No acute injury.
--- NOTE | 2022-01-13 20:08 | CTR_ITS ---
PROCEDURE INFORMATION: Exam: CT Head Without Contrast Exam date and time: 01/13/2022 8:16 PM Age: 56 years old Clinical indication: Injury or trauma; Blunt trauma (contusions or hematomas); Patient HX: C/O head and neck pain post fall today. C collar in place. TECHNIQUE: Imaging protocol: Computed tomography of the head without contrast. Radiation optimization: All CT scans at this facility use at least one of these dose optimization techniques: automated exposure control; mA and/or kV adjustment per patient size (includes targeted exams where dose is matched to clinical indication); or iterative reconstruction. COMPARISON: CT cervical spin wo con* [id number] 10/13/2019 3:14 PM RADIATION DOSE METRICS: Total DLP (mGy-cm): 1127.68 FINDINGS: Brain: Normal. No hemorrhage. Unremarkable white matter. No mass effect. Cerebral ventricles: No ventriculomegaly. Paranasal sinuses: See Bones/joints finding. Mastoid air cells: Visualized mastoid air cells are well aerated. Bones/joints: Mucosal thickening in the ethmoid and maxillary sinuses. Soft tissues: Unremarkable. Vasculature: Carotid atherosclerotic calcification. CT/CT head wo con* [id number] IMPRESSION: No acute intracranial abnormality.
[2022-01-13 20:10] VITALS: PULSE 87; RESP 20; O2SAT 98
--- NOTE | 2022-01-13 20:16 | ED_ITS ---
HPI - Chest Pain General: Chief Complaint: Chest Pain Stated Complaint: CHEST PAIN Time Seen by Provider: 01/13/22 20:03 Source: patient and EMS Mode of arrival: EMS Limitations: no limitations History of Present Illness: 56-year-old male who states he has had quite a bit to drink today he had went outside water his dog states he is unsure if he passed out or tripped and fell. Fell. States he woke up he has had a slight headache some neck pain along with chest pain his chest pain is reproducible w ith touch pain sharp in nature rates it a 5 out of 10 denies any pain elsewhere. Denies any shortness of breath Associated symptoms: Deny abdominal pain, dyspnea, fever(s), nausea or vomiting Review of Systems Const: Denies: fever(s), chills, body aches or change in appetite Eyes: Denies: blurry vision or eye discomfort ENMT: Denies: throat pain or dental pain Card: Reports: chest pain Resp: Denies: dyspnea GI: Denies: abdominal pain, nausea, vomiting or diarrhea : Denies: dysuria Musc: Reports: neck pain Skin/Breast: Denies: rash Neuro: Reports: headache(s) Psych: Denies: depression Ethan/Lymph: Denies: easy bruising All/Imm: Denies: urticaria PFSH ED PFSH: Medical History Alcohol dependence Cervical disc disorder with myelopathy of mid-cervical region Chronic gastritis with bleeding Chronic idiopathic constipation Chronic migraine Depression Elevated hemoglobin A1c Erectile dysfunction History of breast cancer in male History of [place] (myocardial infarction) Hx of breast cancer Hypertension, benign Insomnia Instability of joint 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 Lumbar back pain with radiculopathy affecting lower extremity Major depressive disorder, recurrent, severe with psychotic symptoms Mixed hyperlipidemia Mixed hyperlipidemia Neuropathy, idiopathic Nicotine dependence, cigarettes, uncomplicated Pain management contract signed Polyneuropathy, peripheral sensorimotor axonal Post-operative state Psychiatric care Skin cancer Spondylolisthesis of cervical region Testicular pain Vitamin B12 deficiency Vitamin D deficiency Surgical History History of cholecystectomy History of elbow surgery History of heart artery stent History of spinal surgery 08/14/2019 Dr. Yoel Hernandez: C3-C4, C4-C5 ACDFF Hx of appendectomy Family History Mother Alcohol abuse Sister Alcohol abuse Brother Alcohol abuse Other Unknown family medical history Social History Smoking and tobacco status: current every day smoker cigarettes Packs smoked p er day: 0.25 Years cigarettes smoked: 51 [ Other cigarette details: 1 pack every 2 and half days, ] Alcohol intake: current Alcohol type: beer and hard liquor Adopted: No Caregiver/support person: No Lives independently: Yes Household members: spouse Housing: Other Details: Lives in a tent for about 5-6 years Marital status: Marital status details: October 26, 2019 Number of children: 2 Number of grandchildren: 3 Highest education level completed: High School Graduate service: No Current occupational status: disabled Current occupational exposures/hazards: No Pets and animals: Yes (wildlife) Pets & animals: dog(s) History of recent travel: Yes (for daughters wedding) Details: [place] Out of state: Yes Out of country: No Leisure activites: music, hunting, fishing and other Leisure activities details: nature Sexually active: Yes Current gender identity: Male [place]/Restoration: None Special [place] needs: No Agree to transfusion: Yes Financial difficulty paying for basics: Not Very Hard Physical Exam Const: COMMON NORMALS: no acute distress, patient oriented x3 and healthy appearing GENERAL APPEARANCE: odor of alcohol detected HENMT: COMMON NORMALS: normocephalic and atraumatic HEAD & SCALP: normocephalic and atraumatic Eye: COMMON NORMALS: Equal, round and reactive pupils present and EOMs intact bilaterally PUPIL: Yes Equal, round and reactive pupils present Neck/C-Spine: OTHER: in c collar Chest: COMMONS NORMALS: normal inspection of the chest OTHER: point tender over chest Resp: COMMON NORMALS: normal respiratory effort, No retractions, No use of accessory muscles and clear to auscultation bilaterally AUSCULTATION: clear to auscultation bilaterally Cardio: COMMON NORMALS: regular rate, regular rhythm and No murmurs present (Cardio) RATE: regular rate RHYTHM: regular rhythm GI: COMMON NORMALS: Normal to inspection, nondistended, normoactive bowel sounds present, Soft to palpation, non-tender and no masses PALPATION: Yes Soft to palpation Extremity: COMMON NORMALS: normal to inspection and full ROM Neuro: COMMON NORMALS: patient oriented x3, moves all extremities and no focal motor deficits Psych: COMMON NORMALS: mental status grossly normal, Normal thought process present and cooperative THOUGHT PROCESS: Normal thought process present Skin: COMMON NORMALS: no rashes or lesions noted and no wounds GENERAL SKIN EXAM: no rashes or lesions noted Course Vital Signs: Vital signs: Vital Signs Temperature 97.9 F 01/13/22 20:03 Pulse Rate 87 01/13/22 20:10 Respiratory Rate 19 H 01/13/22 22:39 Blood Pressure 143/92 01/13/22 20:03 Pulse Oximetry 98 01/13/22 20:10 Oxygen Delivery Me thod 01/13/22 20:10 MDM - Chest Pain Medical Decision Making Patient presents here with chest pain along with a closed head injury patient likely passed out he is well-appearing here head CT is normal troponins are normal he has no signs of acute coronary syndrome. Lab Data : 01/13/22 20:12 01/13/22 20:12 Radiology Impressions Chest X-Ray 01/13/22 20:01 IMPRESSION: No acute findings. Cervical Spine CT 01/13/22 20:08 IMPRESSION: No acute injury. Head CT 01/13/22 20:08 IMPRESSION: No acute intracranial abnormality. Laboratory Results WBC 9.3 10^3/uL (4.0-10.0) 01/13/22 20:12 RBC 4.32 10^6/uL (4.1-5.3) 01/13/22 20:12 Hgb 14.3 g/dL (11.7-16.6) 01/13/22 20:12 Hct 42.1 % (42.0-52.0) 01/13/22 20:12 MCV 97.5 fl (80-94) H 01/13/22 20:12 MCH 33.1 pg (28.0-34.0) 01/13/22 20:12 MCHC 34.0 g/dL (30.0-36.0) 01/13/22 20:12 RDW 13.5 % (12.1-15.1) 01/13/22 20:12 Plt Count 187 10^3/cmm (130-400) 01/13/22 20:12 MPV 9.3 fL (7.4-10.4) 01/13/22 20:12 Neut % (Auto) 55.4 % 01/13/22 20:12 Lymph % (Auto) 26.8 % 01/13/22 20:12 Fountain % (Auto) 6.5 % 01/13/22 20:12 Eos % (Auto) 10.1 % 01/13/22 20:12 Baso % (Auto) 0.9 % 01/13/22 20:12 Neut # (Auto) 5.15 10^3/uL (1.8-7.7) 01/13/22 20:12 Lymph # (Auto) 2.5 10^3/uL (0.8-4.8) 01/13/22 20:12 Fountain # (Auto) 0.6 10^3/uL (0.2-0.9) 01/13/22 20:12 Eos # (Auto) 0.9 10^3/uL (0.0-0.8) H 01/13/22 20:12 Baso # (Auto) 0.1 10^3/uL (0.0-0.1) 01/13/22 20:12 Nucleated RBC % (auto) 0 % 01/13/22 20:12 Nucleated RBCs # 0.0 /100WBC 01/13/22 20:12 PT 11.40 SECONDS (12.1-14.9) L 01/13/22 20:12 INR 0.80 (0.8-1.2) 01/13/22 20:12 Sodium 141 mmol/L (136-145) 01/13/22 20:12 Potassium 4.0 mmol/L (3.5-5.1) 01/13/22 20:12 Chloride 104 mmol/L (98-107) 01/13/22 20:12 Carbon Dioxide 23 mmol/L (22-29) 01/13/22 20:12 Anion Gap 18.0 (5-19) 01/13/22 20:12 BUN 8 mg/dL (6-20) 01/13/22 20:12 Creatinine 0.8 mg/dL (0.7-1.2) 01/13/22 20:12 GFR Calculation 99.3 mL/min (90-130) 01/13/22 20:12 Glucose 75 mg/dL (65-115) 01/13/22 20:12 Calculated Osmolality 289 mOsm/kg (285-295) 01/13/22 20:12 Calcium 9.5 mg/dL (8.5-10.5) 01/13/22 20:12 Total Bilirubin 0.2 mg/dL (0.15-1.2) 01/13/22 20:12 AST 26 U/L (0-40) 01/13/22 20:12 ALT 26 U/L (0-41) 01/13/22 20:12 Alkaline Phosphatase 112 U/L (40-130) 01/13/22 20:12 Troponin T Baseline 14 ng/L (0-15) 01/13/22 20:12 Troponin T 120 Minute 15.46 ng/L (0-15) H 01/13/22 22:43 Delta Troponin T 1.46 ABS# (0-10) 01/13/22 22:43 Total Protein 7.1 g/dL (6.6-8.7) 01/13/22 20:12 Albumin 3.7 g/dL (3.5-5.2) 01/13/22 20:12 Globulin 3.4 g/dL (1.3-4.6) 01/13/22 20:12 Lipase 127 U/L (13-60) H 01/13/22 20:12 Ethyl Alcohol 141 mg/dL (0-10) H 01/13/22 20:12 EKG Data EKG 1: I personally reviewed and interpreted this EKG as follows: EKG interpretation date: 01/13/22 EKG interpretation time: 20:42 Interpretation: nsr hr [address] or t wave abnormalities qrs 69 qtc 414 Discharge Plan Discharge Patient Disposition: Home Clinical Impression: Chest pain, Closed head injury, Alcohol intoxication Condition: Stable Prescriptions: No Action clonidine HCl 0.1 mg tablet 0.1 mg PO BID PRN (Reason: alcohol withdrawal) Qty: 60 1RF Rx Instructions: May take one tablet twice per day as needed for alcohol withdrawal venlafaxine [Effexor XR] 75 mg capsule,extended release 24hr 75 mg PO QAM Qty: 30 3RF Rx Instructions: Take one capsule every morning mupirocin 2 % ointment 1 applic topical BID Qty: 22 1RF Rx Instructions: Apply to affected area until healed quetiapine [Seroquel] 50 mg tablet 50 mg PO BID PRN (Reason: anxiety/agitation/sleep) Qty: 60 3RF Rx Instructions: May take one tablet twice per day as needed for anxiety/agitation/sleep hydrocodone-acetaminophen 5-325 mg tablet 1 tab PO Q8H PRN (Reason: pain) 7 Days Qty: 21 0RF hydrochlorothiazide 25 mg tablet 25 mg PO DAILY 90 Days Qty: 90 1RF lisinopril 10 mg tablet See Rx Instructions .ROUTE .COMPLEX Qty: 90 1RF Dose Instruction: TAKE ONE TABLET BY MOUTH DAILY Rx Instructions: TAKE ONE TABLET BY MOUTH DAILY ketoconazole 2 % shampoo 1 applic topical .2x weekly Qty: 120 6RF Rx Instructions: Lather into scalp 2-3 times weekly. Allow to sit on scalp for 5 minutes before rinsing. 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
[2022-01-13 20:17] LABS: Basophils # 0.1 10^3/uL (0.0-0.1); Basophils % 0.9 %; Eosinophils # 0.9 10^3/uL (0.0-0.8); Eosinophils % 10.1 %; Hematocrit 42.1 % (42.0-52.0); Hemoglobin 14.3 g/dL (11.7-16.6); Lymphocytes # 2.5 10^3/uL (0.8-4.8); Lymphocytes % 26.8 %; Mean Corpuscular Hemoglobin 33.1 pg (28.0-34.0); Mean Corpuscular Volume 97.5 fl (80-94); Mean Platelet Volume 9.3 fL (7.4-10.4); Monocytes # 0.6 10^3/uL (0.2-0.9); Monocytes % 6.5 %; Neutrophils # 5.15 10^3/uL (1.8-7.7); Neutrophils % 55.4 %; Nucleated Red Blood Cells % 0 %; Platelet Count 187 10^3/cmm (130-400); Red Blood Count 4.32 10^6/uL (4.1-5.3); Red Cell Distribution Width 13.5 % (12.1-15.1); White Blood Count 9.3 10^3/uL (4.0-10.0)
[2022-01-13 20:44] LABS: Alanine Aminotransferase 26 U/L (0-41); Albumin Level 3.7 g/dL (3.5-5.2); Alkaline Phosphatase 112 U/L (40-130); Aspartate Amino Transferase 26 U/L (0-40); Chloride 104 mmol/L (98-107); Glucose 75 mg/dL (65-115); Sodium 141 mmol/L (136-145)
[2022-01-13 20:47] LABS: Troponin(5th) Baseline 14 ng/L (0-15)
[2022-01-13 21:28] LABS: Alcohol Level 141 mg/dL (0-10); Blood Urea Nitrogen 8 mg/dL (6-20); Calcium 9.5 mg/dL (8.5-10.5); Carbon Dioxide 23 mmol/L (22-29); Globulin 3.4 g/dL (1.3-4.6); Glomerular Filtration Rate 99.3 mL/min (90-130); Lipase 127 U/L (13-60); Osmolality Calculated 289 mOsm/kg (285-295); Total Bilirubin 0.2 mg/dL (0.15-1.2); Total Protein 7.1 g/dL (6.6-8.7)
--- NOTE | 2022-01-13 22:10 | ECG_ITS ---
[facility] Test Date: 2022-01-13 Pat Name: Mg Cheatham Department: Room: Gender: Male International Coordinator: : 1965 Requested By: Amy Romano Order Number: [id number] Ju MD: Wesley Hannon M.D. Measurements Intervals [place] Rate: 77 P: 70 AL: 174 QRS: 90 QRSD: 68 T: 80 QT: 371 QTc: 422 Interpretive Statements SINUS RHYTHM WITH MARKED SINUS ARRHYTHMIA Compared to ECG 01/13/2022 20:42:58 No significant changes Electronically Signed On 01-14-2022 14:13:05 CDT by Wesley Hannon M.D. [id number]
[2022-01-13 22:30] VITALS: BP 130/97; PULSE 89; RESP 18; O2SAT 97
[2022-01-13 22:39] VITALS: RESP 19
[2022-01-13] MEDS: HYDROmorphone 1 mg/mL INJ 1 mL 0.5 MG IVP (22:39)
[2022-01-13 22:45] VITALS: BP 139/98; PULSE 87; RESP 15; O2SAT 97
[2022-01-13 23:15] VITALS: BP 156/82; PULSE 106; RESP 18
[2022-01-13 23:15] LABS: Troponin 5 2HR 15.46 ng/L (0-15); Troponin 5 2HR Delta 1.46 ABS# (0-10)
== END 2022-01-14 00:12 | disposition home or self-care (01) ==
PROVIDERS: Emergency Provider Emergency Medicine
DX: R07.9 Chest pain, unspecified (principal); S09.8XXA Other specified injuries of head, initial encounter; F10.129 Alcohol abuse with intoxication, unspecified; Y90.6 Blood alcohol level of 120-199 mg/100 ml; F17.210 Nicotine dependence, cigarettes, uncomplicated; Z85.3 Personal history of malignant neoplasm of breast; I25.2 Old myocardial infarction; I10 Essential (primary) hypertension; E78.2 Mixed hyperlipidemia
CPT/HCPCS: 70450; 71045; 72125; 80053; 80307; 83690; 84484; 85025; 85610; 93005; 96374; 99285; J1170

== ENCOUNTER → 2022-01-22 16:04 | Outpatient (BNVA) | payer MEDICARE, MEDICAID, SELFPAY ==
[2021-01-28 13:10] VITALS: BP 136/81; BMI 26.3
== END ==
PROVIDERS: PCP Nurse Practitioner; Visit Provider Nurse Practitioner
DX: M19.022 Primary osteoarthritis, left elbow (principal); M25.522 Pain in left elbow
CPT/HCPCS: 73080

== ENCOUNTER 2022-06-03 18:51 | Emergency (ER) | payer MEDICARE, MEDICAID, SELFPAY ==
[2021-01-28 13:10] VITALS: BP 136/81; BMI 26.3
--- NOTE | 2022-06-03 18:52 | XRR_ITS ---
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 Views: 3 or more views. COMPARISON: No relevant prior studies available. FINDINGS: Bones/joints: The 2nd and 3rd phalanxes are slightly longer than the 1st phalanx. No fracture, dislocation or bone destruction. Soft tissues: No radiopaque foreign body. No gas in soft tissues. XR/XR foot RT min 3V* [id number] IMPRESSION: No significant findings
[2022-06-03 18:57] VITALS: BP 130/82; PULSE 117; RESP 20; TEMP 36.6; O2SAT 96; BMI 25.8
--- NOTE | 2022-06-03 19:03 | W.ED.EXTPRO ---
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 Associated symptoms: Deny chest pain, fever(s) or rash Review of Systems Const: Denies: fever(s), chills, body aches or change in appetite Eyes: Denies: blurry vision or eye discomfort ENMT: Denies: throat pain or dental pain Card: Denies: chest pain Resp: Denies: dyspnea GI: Denies: abdominal pain, nausea, vomiting or diarrhea : Denies: dysuria Musc: Reports: extremity pain Skin/Breast: Denies: rash Neuro: Denies: headache(s) Psych: Denies: depression Ethan/Lymph: Denies: easy bruising All/Imm: Denies: urticaria PFSH ED PFSH: Medical History Alcohol dependence Cervical disc disorder with myelopathy of mid-cervical region Chronic gastritis with bleeding Chronic idiopathic constipation Chronic migraine Depression Elevated hemoglobin A1c Erectile dysfunction History of breast cancer in male History of [place] (myocardial infarction) Hx of breast cancer Hypertension, benign Insomnia Instability of joint 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 Lumbar back pain with radiculopathy affecting lower extremity Major depressive disorder, recurrent, severe with psychotic symptoms Mixed hyperlipidemia Mixed hyperlipidemia Neuropathy, idiopathic Nicotine dependence, cigarettes, uncomplicated Pain management contract signed Polyneuropathy, peripheral sensorimotor axonal Post-operative state Psychiatric care Skin cancer Spondylolisthesis of cervical region Testicular pain Vitamin B12 deficiency Vitamin D deficiency Surgical History History of cholecystectomy History of elbow surgery History of heart artery stent History of spinal surgery 08/14/2019 Dr. Yoel Hernandez: C3-C4, C4-C5 ACDFF Hx of appendectomy Family History Mother Alcohol abuse Sister Alcohol abuse Brother Alcohol abuse Other Unknown family medical history Social History Smoking and tobacco status: current every day smoker cigarettes Packs smoked per day: 0.25 Years cigarettes smoked: 51 [ Other cigarette details: 1 pack every 2 and half days, ] Alcohol intake: current Alcohol type: beer and hard liquor Adopted: No Caregiver/support person: No Lives independently: Yes Household members: spouse Housing: Other Details: Lives in a tent for about 5-6 years Marital status: Marital status details: October 26, 2019 Number of children: 2 Number of grandchildren: 3 Highest education level completed: High School Graduate service: No Current occupational status: disabled Current occupational exposures/hazards: No Pets and animals: Yes (wildlife) Pets & animals: dog(s) History of recent travel: Yes (for daughters wedding) Details: [place] Out of state: Yes Out of country: No Leisure activites: music, hunting, fishing and other Leisure activities details: nature Sexually active: Yes Current gender identity: Male [place]/Mu-Ism: None Special [place] needs: No Agree to transfusion: Yes Financial difficulty paying for basics: Not Very Hard Physical Exam Const: COMMON NORMALS: no acute distress, patient oriented x3 and healthy appearing HENMT: COMMON NORMALS: normocephalic and atraumatic HEAD & SCALP: normocephalic and atraumatic Eye: COMMON NORMALS: Equal, round and reactive pupils present and EOMs intact bilaterally PUPIL: Yes Equal, round and reactive pupils present Neck/C-Spine: COMMON NORMALS: full ROM and supple Chest: COMMONS NORMALS: normal inspection of the chest and normal palpation of entire chest wall Resp: COMMON NORMALS: normal respiratory effort, No retractions, No use of accessory muscles and clear to auscultation bilaterally AUSCULTATION: clear to auscultation bilaterally Cardio: COMMON NORMALS: regular rate, regular rhythm and No murmurs present (Cardio) RATE: regular rate RHYTHM: regular rhythm GI: COMMON NORMALS: Normal to inspection, nondistended, normoactive bowel sounds present, Soft to palpation, non-tender and no masses PALPATION: Yes Soft to palpation Extremity: OTHER: tenderness over right foot no obvious deformity Neuro: COMMON NORMALS: patient oriented x3, moves all extremities and no focal motor deficits Psych: COMMON NORMALS: mental status grossly normal, Normal thought process present and cooperative THOUGHT PROCESS: Normal thought process present Skin: COMMON NORMALS: no rashes or lesions noted and no wounds GENERAL SKIN EXAM: no rashes or lesions noted Course Vital Signs: Vital signs: Vital Signs Temperature 97.9 F 06/03/22 18:57 Pulse Rate 103 H 06/03/22 20:26 Respiratory Rate 16 06/03/22 20:26 Blood Pressure 128/86 06/03/22 20:26 Pulse Oximetry 96 06/03/22 20:26 Oxygen Delivery Me thod 06/03/22 18:57 MDM - Extremity (Nontraumatic) Medical Decision Making Patient presents here with contusion to his foot he has no laceration no fractures he is stable for discharge he is to follow-up his PCP and return if worsening. Lab Data Radiology Impressions Foot X-Ray 06/03/22 18:52 IMPRESSION: No significant findings Discharge Plan Discharge Patient Disposition: Home Clinical Impression: Contusion of foot, right Condition: Stable Prescriptions: New Naprosyn 500 mg tablet 500 mg PO BID PRN (Reason: pain) Qty: 20 0RF No Action clonidine HCl 0.1 mg tablet 0.1 mg PO BID PRN (Reason: alcohol withdrawal) Qty: 60 1RF Rx Instructions: May take one tablet twice per day as needed for alcohol withdrawal venlafaxine [Effexor XR] 75 mg capsule,extended release 24hr 75 mg PO QAM Qty: 30 3RF Rx Instructions: Take one capsule every morning mupirocin 2 % ointment 1 applic topical BID Qty: 22 1RF Rx Instructions: Apply to affected area until healed hydrochlorothiazide 25 mg tablet 25 mg PO DAILY 90 Days Qty: 90 1RF lisinopril 10 mg tablet See Rx Instructions .ROUTE .COMPLEX Qty: 90 1RF Dose Instruction: TAKE ONE TABLET BY MOUTH DAILY Rx Instructions: TAKE ONE TABLET BY MOUTH DAILY quetiapine [Seroquel] 50 mg tablet 50 mg PO BID PRN (Reason: anxiety/agitation/sleep) Qty: 60 3RF Rx Instructions: May take one tablet twice per day as needed for anxiety/agitation/sleep hydrocodone-acetaminophen 5-325 mg tablet 1 tab PO Q8H PRN (Reason: pain) 7 Days Qty: 21 0RF ketoconazole 2 % shampoo 1 applic topical .2x weekly Qty: 120 6RF Rx Instructions: Lather into scalp 2-3 times weekly. Allow to sit on scalp for 5 minutes before rinsing. hydrocodone-acetaminophen 5-325 mg tablet 1 - 2 tab PO .Q4-6H Qty: 40 0RF Discharge Orders: Discharge ED (Routine); Ordered 06/03/22 Ordered By: Amy Romano Referrals: Hailee Downey FNP [Primary Care Provider] - 1-3 days Discharge Diet: Advance as tolerated Discharge Activity: Resume usual activity Patient Instructions: Contusion in Adults (ED) Coding Level of Care Code ED Patient Consumer Marketer for Kaylee Aguayo
[2022-06-03] MEDS: HYDROcodone-acetaminophen 7.5-325 mg Tablet 1 TAB PO (19:10)
[2022-06-03] MEDS: neomycin-poly-bacitracin oint 28 gm 1 APPLIC TOPICAL (19:52)
[2022-06-03 20:26] VITALS: BP 128/86; PULSE 103; RESP 16; O2SAT 96
== END 2022-06-03 20:38 | disposition home or self-care (01) ==
PROVIDERS: Emergency Provider Emergency Medicine; PCP Nurse Practitioner
DX: S90.31XA Contusion of right foot, initial encounter (principal); W20.8XXA Other cause of strike by thrown, projected or falling object, initial encounter
CPT/HCPCS: 73630; 99283

== ENCOUNTER → 2022-12-30 09:56 | Outpatient (BNVA) | payer MEDICARE, MEDICAID, SELFPAY ==
[2021-01-28 13:10] VITALS: BP 136/81; BMI 26.3
== END ==
PROVIDERS: PCP Nurse Practitioner; Visit Provider Nurse Practitioner Psychiatric/Mental Health
DX: Z79.899 Other long term (current) drug therapy (principal)
CPT/HCPCS: 80053; 80061; 83036; 83721

== ENCOUNTER → 2023-03-16 10:03 | Outpatient (BNVA) | payer MEDICARE, MEDICAID, SELFPAY ==
[2021-01-28 13:10] VITALS: BP 136/81; BMI 26.3
== END ==
PROVIDERS: PCP Nurse Practitioner; Visit Provider Nurse Practitioner Family
DX: L57.8 Other skin changes due to chronic exposure to nonionizing radiation (principal); L82.1 Other seborrheic keratosis; L81.4 Other melanin hyperpigmentation; Z08 Encounter for follow-up examination after completed treatment for malignant neoplasm; Z85.828 Personal history of other malignant neoplasm of skin
CPT/HCPCS: 17000; 17110; 99213

== ENCOUNTER → 2023-06-30 09:58 | Outpatient (BNVA) | payer OTHER, MEDICAID, SELFPAY ==
[2021-01-28 13:10] VITALS: BP 136/81; BMI 26.3
== END ==
PROVIDERS: PCP Nurse Practitioner; Visit Provider Podiatrist Foot & Ankle Surgery
DX: S91.331A Puncture wound without foreign body, right foot, initial encounter; W45.0XXA Nail entering through skin, initial encounter; E11.42 Type 2 diabetes mellitus with diabetic polyneuropathy; M65.171 Other infective (teno)synovitis, right ankle and foot; Z46.89 Encounter for fitting and adjustment of other specified devices; S99.921D Unspecified injury of right foot, subsequent encounter; S91.331D Puncture wound without foreign body, right foot, subsequent encounter; X58.XXXD Exposure to other specified factors, subsequent encounter
CPT/HCPCS: 28003; 73630; 87070; 87075; 87205; 97760; 99204; L4361

== ENCOUNTER 2023-06-30 10:45 | Outpatient (CLI) | payer OTHER, MEDICAID, SELFPAY ==
[2023-06-30 10:22] VITALS: BP 136/81; BMI 26.3
== END 2023-06-30 10:46 | disposition home or self-care (01) ==
LOC: SPT 10:51
PROVIDERS: PCP Nurse Practitioner; Visit Provider Podiatrist Foot & Ankle Surgery
DX: Z46.89 Encounter for fitting and adjustment of other specified devices (principal); S99.921D Unspecified injury of right foot, subsequent encounter; S91.331D Puncture wound without foreign body, right foot, subsequent encounter; X58.XXXD Exposure to other specified factors, subsequent encounter
CPT/HCPCS: 28003; 97760; 99204; L4361

== ENCOUNTER → 2023-08-05 13:39 | Outpatient (BNVA) | payer MEDICAID, SELFPAY | PROVIDERS: PCP Nurse Practitioner; Visit Provider Podiatrist Foot & Ankle Surgery | DX: S91.331D Puncture wound without foreign body, right foot, subsequent encounter (principal); E11.42 Type 2 diabetes mellitus with diabetic polyneuropathy; X58.XXXD Exposure to other specified factors, subsequent encounter | CPT/HCPCS: 99213 ==

== ENCOUNTER → 2023-09-29 10:16 | Outpatient (BNVA) | payer OTHER, SELFPAY | PROVIDERS: PCP Nurse Practitioner; Visit Provider Nurse Practitioner Family | DX: L57.0 Actinic keratosis (principal); D36.14 Benign neoplasm of peripheral nerves and autonomic nervous system of thorax; L72.0 Epidermal cyst; D22.5 Melanocytic nevi of trunk; L57.8 Other skin changes due to chronic exposure to nonionizing radiation; B35.1 Tinea unguium | CPT/HCPCS: 17000; 99214 ==

== ENCOUNTER → 2024-10-23 15:05 | Outpatient (BNVA) | payer MEDICARE, MEDICAID, SELFPAY | PROVIDERS: PCP Nurse Practitioner; Visit Provider Nurse Practitioner Family | DX: Z12.5 Encounter for screening for malignant neoplasm of prostate (principal); I10 Essential (primary) hypertension; E78.2 Mixed hyperlipidemia; R73.09 Other abnormal glucose; D50.9 Iron deficiency anemia, unspecified; D64.9 Anemia, unspecified | CPT/HCPCS: 73030; 80053; 80061; 81003; 82306; 82607; 82728; 83036; 83550; 83735; 84402; 84403; 84443; 85025; G0103 ==

== ENCOUNTER → 2024-11-06 15:29 | Outpatient (BNVA) | payer MEDICARE, MEDICAID, SELFPAY | PROVIDERS: PCP Nurse Practitioner Family; Visit Provider Nurse Practitioner Family | DX: R79.89 Other specified abnormal findings of blood chemistry (principal) | CPT/HCPCS: 80053; 82570; 84156 ==